=== PATIENT | male | born 1995 | race Hispanic/Latino ===

== ENCOUNTER 2018-10-24 15:57 | Emergency (ER) | payer SELFPAY ==
--- NOTE | 2018-10-24 17:29 | EDPHYS ---
Physician Documentation [facility] Name: Xavi Jarrell Age: 23 yrs Sex: Male : 1995 Arrival Date: 10/24/2018 Time: 16:01 Bed 9 Private MD: ED Physician Alden Hawkins HPI: 10/24 17:01 This 23 yrs old Male presents to ER via Ambulatory with complaints of Fever, jr8 Sore Throat, Cough. 17:01 Onset: The symptoms/episode began/occurred acutely, 2 day(s) ago. Modifying factors: jr8 there are no obvious modifying factors. Associated signs and symptoms: Pertinent positives: chills, cough, decreased appetite, headache, nausea, runny nose, sinus congestion, sore throat, vomiting. Severity of symptoms: At their worst the symptoms were mild in the emergency department the symptoms are unchanged. The patient has not experienced similar symptoms in the past. The patient has not recently seen a physician. Historical: - Allergies: 16:16 No Known Allergies; tw2 - PMHx: 16:16 None; tw2 - PSHx: 16:16 None; tw2 - Immunization history:: Adult Immunizations. - Social history:: Smoking status: Patient/guardian denies using tobacco. - Ebola Screening: : Patient denies travel to an Ebola-affected area in the 21 days before illness onset. ROS: 17:01 Eyes: Negative for injury, pain, redness, and discharge, Neck: Negative for injury, jr8 pain, and swelling, Cardiovascular: Negative for chest pain, palpitations, and edema, Back: Negative for injury and pain, MS/Extremity: Negative for injury and deformity, Skin: Negative for injury, rash, and discoloration. 17:01 Constitutional: Positive for body aches, chills, fever. 17:01 ENT: Positive for rhinorrhea, sinus congestion, sore throat. 17:01 Respiratory: Positive for cough, Negative for dyspnea on exertion, shortness of breath, sputum production, wheezing. 17:01 Abdomen/GI: Positive for nausea and vomiting, Negative for abdominal pain, diarrhea, abdominal cramps, abdominal distension, anorexia, dysphagia, hematemesis, black/tarry stool, rectal pain, rectal bleeding, bowel incontinence, flatulence. 17:01 Neuro: Positive for headache, Negative for altered mental status, dizziness, gait disturbance, hearing loss, loss of consciousness, numbness, seizure activity, speech changes, syncope, near syncope, tingling, tinnitus, tremor, visual changes, weakness. Exam: 17:01 Eyes: Pupils equal round and reactive to light, extra-ocular motions intact. Lids and jr8 lashes normal. Conjunctiva and sclera are non-icteric and not injected. Cornea within normal limits. Periorbital areas with no swelling, redness, or edema. ENT: Nares patent. No nasal discharge, no septal abnormalities noted. Tympanic membranes are normal and external auditory canals are clear. Oropharynx with no redness, swelling, or masses, exudates, or evidence of obstruction, uvula midline. Mucous membranes moist. Neck: Trachea midline, no thyromegaly or masses palpated, and no cervical lymphadenopathy. Supple, full range of motion without nuchal rigidity, or vertebral point tenderness. No Meningismus. Cardiovascular: Regular rate and rhythm with a normal S1 and S2. No gallops, murmurs, or rubs. Normal PMI, no JVD. No pulse deficits. Respiratory: Lungs have equal breath sounds bilaterally, clear to auscultation and percussion. No rales, rhonchi or wheezes noted. No increased work of breathing, no retractions or nasal flaring. Abdomen/GI: Soft, non-tender, with normal bowel sounds. No distension or tympany. No guarding or rebound. No evidence of tenderness throughout. Back: No spinal tenderness. No costovertebral tenderness. Full range of motion. Skin: Warm, dry with normal turgor. Normal color with no rashes, no lesions, and no evidence of cellulitis. MS/ Extremity: Pulses equal, no cyanosis. Neurovascular intact. Full, normal range of motion. Neuro: Awake and alert, GCS 15, oriented to person, place, time, and situation. Cranial nerves II-XII grossly intact. Motor strength 5/5 in all extremities. Sensory grossly intact. Cerebellar exam normal. Normal gait. Vital Signs: 16:16 BP 122 / 54; Pulse 88; Resp 17; Temp 98.0(TE); Pulse Ox 98% on R/A; Weight 106.59 kg tw2 (R); Height 6 ft. 3 in. (190.50 cm); Pain 8/10; 16:16 Body Mass Index 29.37 (106.59 kg, 190.50 cm) tw2 MDM: 16:39 Patient medically screened. jr8 17:28 Data reviewed: vital signs, nurses notes, lab test result(s), and as a result, I will jr8 discharge patient. Data interpreted: Pulse oximetry: on room air is 98 %. Interpretation: normal. Counseling: I had a detailed discussion with the patient and/or guardian regarding: the historical points, exam findings, and any diagnostic results supporting the discharge/admit diagnosis, lab results, the need for outpatient follow up, a family practitioner, to return to the emergency department if symptoms worsen or persist or if there are any questions or concerns that arise at home. 10/24 16:37 Order name: Flu; Complete Time: 17:25 ms 10/24 16:37 Order name: Strep; Complete Time: 17:25 ms 10/24 17:17 Order name: Throat Culture EDMS Administered Medications: No medications were administered Disposition: 10/25 07:59 Co-signature as Attending Physician, Alden Hawkins MD I agree with the assessment and kdr plan of care. Disposition: 10/24/18 17:29 Discharged to Home. Impression: Acute upper respiratory infection, unspecified. - Condition is Stable. - Discharge Instructions: Upper Respiratory Infection, Adult. - Prescriptions for Prednisone 20 mg Oral Tablet - take 1 tablet by ORAL route once daily for 5 days; 5 tablet. Zofran 4 mg Oral Tablet - take 1 tablet by ORAL route every 12 hours As needed; 20 tablet. Guaifenesin AC 10- 100 mg/5 mL Oral Liquid - take 10 milliliter by ORAL route every 4 hours As needed; 240 milliliter. - School release form, Work release form, Medication Reconciliation Form, Thank You Letter, Antibiotic Education, Prescription Opioid Use form. - Follow up: Private Physician; When: 5 - 6 days; Reason: Recheck today's complaints, Continuance of care, Re-evaluation by your physician. - Problem is new. - Symptoms have improved. Signatures: Dispatcher [employer] EDMS Alden Hawkins MD MD [facility] Renae Saravia RN RN iw Roszak, Josh, PA PA jr8 Lala Rooney RN RN tw2 Corrections: (The following items were deleted from the chart) 10/24 17:41 17:29 10/24/2018 17:29 Discharged to Home. Impression: Acute upper respiratory iw infection, unspecified. Condition is Stable. Forms are Medication Reconciliation Form, Thank You Letter, Antibiotic Education, Prescription Opioid Use. Follow up: Private Physician; When: 5 - 6 days; Reason: Recheck today's complaints, Continuance of care, Re-evaluation by your physician. Problem is new. Symptoms have improved. jr8
--- NOTE | 2018-10-24 17:29 | ER ---
Nurse's Notes [facility] Name: Xavi Jarrell Age: 23 yrs Sex: Male : 1995 Arrival Date: 10/24/2018 Time: 16:01 Bed 9 Private MD: Diagnosis: Acute upper respiratory infection, unspecified Presentation: 10/24 16:15 Presenting complaint: Patient states: my headache has been getting worse, i have tw2 cough/congestion, and i am feeling nauseous, yesterday i was getting chills and had fever. Transition of care: patient was not received from another setting of care. Onset of symptoms was October 24, 2018. Risk Assessment: Do you want to hurt yourself or someone else? Patient reports no desire to harm self or others. Initial Sepsis Screen: Does the patient meet any 2 criteria? No. Patient's initial sepsis screen is negative. Does the patient have a suspected source of infection? No. Patient's initial sepsis screen is negative. Care prior to arrival: None. 16:15 Method Of Arrival: Ambulatory tw2 16:15 Acuity: DEVAN 4 tw2 Triage Assessment: 16:16 General: Appears in no apparent distress. Behavior is calm, cooperative, appropriate tw2 for age. Pain: Complains of pain in headache and bodyaches. EENT: Reports nasal congestion nasal discharge. Historical: - Allergies: 16:16 No Known Allergies; tw2 - PMHx: 16:16 None; tw2 - PSHx: 16:16 None; tw2 - Immunization history:: Adult Immunizations. - Social history:: Smoking status: Patient/guardian denies using tobacco. - Ebola Screening: : Patient denies travel to an Ebola-affected area in the 21 days before illness onset. Screenin:40 Abuse screen: Denies threats or abuse. Denies injuries from another. Nutritional iw screening: No deficits noted. Tuberculosis screening: No symptoms or risk factors identified. Fall Risk None identified. Assessment: 17:00 General: Appears in no apparent distress. comfortable, Behavior is calm, cooperative. iw Pain: Complains of pain in head. Neuro: Level of Consciousness is awake, alert, obeys commands, Oriented to person, place, time, situation, Moves all extremities. Cardiovascular: Patient's skin is warm and dry. Respiratory: Reports cough that is Airway is patent Respiratory effort is even, unlabored, Breath sounds are clear bilaterally. GI: Abdomen is flat, non-distended. EENT: Throat is reddened. Derm: Skin is intact, is healthy with good turgor. Musculoskeletal: Range of motion: intact in all extremities. Vital Signs: 16:16 BP 122 / 54; Pulse 88; Resp 17; Temp 98.0(TE); Pulse Ox 98% on R/A; Weight 106.59 kg tw2 (R); Height 6 ft. 3 in. (190.50 cm); Pain 8/10; 16:16 Body Mass Index 29.37 (106.59 kg, 190.50 cm) tw2 ED Course: 16:01 Patient arrived in ED. ds1 16:15 Triage completed. tw2 16:16 Arm band placed on. tw2 16:16 Patient has correct armband on for positive identification. iw 16:37 Marc Manley PA is PHCP. jr8 16:37 Alden Hawkins MD is Attending Physician. jr8 17:02 Renae Saravia, RN is Primary Nurse. iw 17:04 Flu and/or RSV swab sent to lab. Strep swab sent to lab. ms 17:40 No provider procedures requiring assistance completed. Patient did not have IV access iw during this emergency room visit. Administered Medications: No medications were administered Outcome: 17:29 Discharge ordered by . jr8 17:40 Discharged to home ambulatory. iw 17:40 Condition: good 17:40 Discharge instructions given to patient, Instructed on discharge instructions, follow up and referral plans. Demonstrated understanding of instructions, follow-up care, medications, Prescriptions given X 2. 17:41 Patient left the ED. iw Signatures: Carlie Alvarez ds1 Renae Saravia, RN RN iw Esther Monge ms Marc Manley PA PA jr8 Lala Rooney RN RN tw2 Corrections: (The following items were deleted from the chart) 0307 07:27 03/06 17:40 Discharge instructions given to patient, Instructed on discharge iw instructions, follow up and referral plans. Demonstrated understanding of instructions, follow-up care, iw
== END 2018-10-24 17:41 | disposition home or self-care (01) ==
LOC: ER 15:57
DX: J06.9 Acute upper respiratory infection, unspecified (principal)
CPT/HCPCS: 87070; 87081; 87804; 99283

== ENCOUNTER 2019-07-10 11:37 | Emergency (ER) | payer SELFPAY ==
--- NOTE | 2019-07-10 12:36 | RAD REPORT ---
EXAM DESCRIPTION: Satya Umana (2 Views)07/10/2019 12:29 pm CLINICAL HISTORY: Cough COMPARISON: None FINDINGS: The lungs appear clear of acute infiltrate. The heart is normal size IMPRESSION: No acute abnormalities displayed
[2019-07-10] MEDS ORDERED: KETOROLAC 30 MG/ML INJ ONE (13:14)
--- NOTE | 2019-07-10 13:14 | ER ---
Nurse's Notes [facility] Name: Xavi Jarrell Age: 23 yrs Sex: Male : 1995 Arrival Date: 07/10/2019 Time: 11:39 Bed 11 Private MD: Diagnosis: Acute bronchitis Presentation: 07/10 11:39 Presenting complaint: Patient states: Cough, congestion, sore throat, and chest pain aj1 when he coughs since Monday. Denies fever. Transition of care: patient was not received from another setting of care. Onset of symptoms was June 2019. Risk Assessment: Do you want to hurt yourself or someone else? Patient reports no desire to harm self or others. Initial Sepsis Screen: Does the patient meet any 2 criteria? No. Patient's initial sepsis screen is negative. Does the patient have a suspected source of infection? No. Patient's initial sepsis screen is negative. Care prior to arrival: None. 11:39 Method Of Arrival: Ambulatory aj1 11:39 Acuity: DEVAN 4 aj1 Triage Assessment: 11:42 General: Appears in no apparent distress. comfortable, Behavior is calm, cooperative, aj1 appropriate for age. Pain: Complains of pain in chest Pain does not radiate. Pain currently is 8 out of 10 on a pain scale. Aggravated by when coughing or taking a deep breath. Neuro: Level of Consciousness is awake, alert, obeys commands. Cardiovascular: Patient's skin is warm and dry. Respiratory: Reports cough that is hacking, persistent Airway is patent Respiratory effort is even, unlabored, Respiratory pattern is regular, symmetrical, Breath sounds are clear bilaterally. Historical: - Allergies: 11:42 No Known Allergies; aj1 - Home Meds: 11:42 None [Active]; aj1 - PMHx: 11:42 None; aj1 - PSHx: 11:42 None; aj1 - Immunization history:: Flu vaccine is not up to date. - Social history:: Smoking status: Patient/guardian denies using tobacco, Patient/guardian denies using alcohol, street drugs, The patient lives with family. - Ebola Screening: : Patient denies travel to an Ebola-affected area in the 21 days before illness onset. - Family history:: not pertinent. Screenin:26 Abuse screen: Denies threats or abuse. Denies injuries from another. Nutritional ss screening: No deficits noted. Tuberculosis screening: Never had TB. Fall Risk None identified. Assessment: 12:24 General: Appears in no apparent distress. comfortable, Behavior is calm, cooperative, ss Reports feeling ill for 2-3 days, Denies fever. Pain: Complains of pain in chest Pain currently is 8 out of 10 on a pain scale. Quality of pain is described as sore Is continuous, Aggravated by coughing. Neuro: Level of Consciousness is awake, alert, obeys commands, Oriented to person, place, time, situation. Cardiovascular: Capillary refill < 3 seconds is brisk in bilateral fingers. Respiratory: Airway is patent Respiratory effort is even, unlabored, Respiratory pattern is regular, symmetrical. Respiratory: Reports cough that is persistent Breath sounds are clear bilaterally. GI: Patient currently denies diarrhea, nausea, vomiting. EENT: Nares are clear Reports sore throat. Derm: Skin is intact, is healthy with good turgor, Skin is dry, Skin is pink, warm \T\ dry. normal. Musculoskeletal: Circulation, motion, and sensation intact. Capillary refill < 3 seconds, is brisk, in bilateral fingers. Range of motion: intact in all extremities, Swelling absent. 13:25 Reassessment: DC DELAYED DUE TO SHOT TIME. ss Vital Signs: 11:42 BP 141 / 80; Pulse 68; Resp 16; Temp 97.7; Pulse Ox 98% on R/A; Weight 102.06 kg (R); aj1 Height 6 ft. 3 in. (190.50 cm) (R); Pain 8/10; 11:42 Body Mass Index 28.12 (102.06 kg, 190.50 cm) aj1 ED Course: 11:39 Patient arrived in ED. as 11:41 Triage completed. aj1 11:42 Arm band placed on Patient placed in waiting room, Patient notified of wait time. aj1 12:16 Rachel Perez MD is Attending Physician. ma2 12:19 Raisa Lancaster, MARKO is Primary Nurse. ss 12:29 Chest Pa And Lat (2 Views) XRAY In Process Unspecified. EDMS 13:25 No provider procedures requiring assistance completed. Patient did not have IV access ss during this emergency room visit. 13:26 Patient has correct armband on for positive identification. Bed in low position. ss Administered Medications: 13:14 Drug: TORadol 60 mg Route: IM; Site: left gluteus; ss 13:26 Follow up: Response: No adverse reaction ss Outcome: 13:14 Discharge ordered by . ma2 13:25 Condition: good ss 13:25 Discharge instructions given to patient, Instructed on discharge instructions, follow up and referral plans. medication usage, Demonstrated understanding of instructions, follow-up care, medications, Prescriptions given X 3. 13:26 Discharged to home ambulatory. ss 13:26 Patient left the ED. ss Signatures: Dispatcher [employer] EDMS Sun Cartagena RN RN aj1 Melissa Anders Shelby, RN RN Rachel Perez MD MD ma2
--- NOTE | 2019-07-10 13:14 | EDPHYS ---
Physician Documentation [facility] Name: Xavi Jarrell Age: 23 yrs Sex: Male : 1995 Arrival Date: 07/10/2019 Time: 11:39 Bed 11 Private MD: ED Physician Rachel Perez HPI: 07/10 13:12 This 23 yrs old Male presents to ER via Ambulatory with complaints of Painful ma2 Cough, Congestion. 13:12 Onset: The symptoms/episode began/occurred gradually, 1 day(s) ago. Severity of ma2 symptoms: At their worst the symptoms were moderate, in the emergency department the symptoms are unchanged. Associated signs and symptoms: Pertinent negatives: diarrhea, nausea, sore throat. The patient has not experienced similar symptoms in the past. Historical: - Allergies: 11:42 No Known Allergies; aj1 - Home Meds: 11:42 None [Active]; aj1 - PMHx: 11:42 None; aj1 - PSHx: 11:42 None; aj1 - Immunization history:: Flu vaccine is not up to date. - Social history:: Smoking status: Patient/guardian denies using tobacco, Patient/guardian denies using alcohol, street drugs, The patient lives with family. - Ebola Screening: : Patient denies travel to an Ebola-affected area in the 21 days before illness onset. - Family history:: not pertinent. ROS: 13:12 Constitutional: Negative for fever, chills, and weight loss. ma2 13:12 All other systems are negative. Exam: 13:12 Constitutional: This is a well developed, well nourished patient who is awake, alert, ma2 and in no acute distress. Eyes: Pupils equal round and reactive to light, extra-ocular motions intact. Lids and lashes normal. Conjunctiva and sclera are non-icteric and not injected. Cornea within normal limits. Periorbital areas with no swelling, redness, or edema. ENT: Nares patent. No nasal discharge, no septal abnormalities noted. Tympanic membranes are normal and external auditory canals are clear. Oropharynx with redness + tonsillitis, no, swelling, or masses, exudates, or evidence of obstruction, uvula midline. Mucous membranes moist. Chest/axilla: Normal chest wall appearance and motion. Nontender with no deformity. No lesions are appreciated. Cardiovascular: Regular rate and rhythm with a normal S1 and S2. No gallops, murmurs, or rubs. Normal PMI, no JVD. No pulse deficits. Respiratory: Lungs have equal breath sounds bilaterally, clear to auscultation and percussion. No rales, rhonchi or wheezes noted. No increased work of breathing, no retractions or nasal flaring. Abdomen/GI: Soft, non-tender, with normal bowel sounds. No distension or tympany. No guarding or rebound. No evidence of tenderness throughout. Vital Signs: 11:42 BP 141 / 80; Pulse 68; Resp 16; Temp 97.7; Pulse Ox 98% on R/A; Weight 102.06 kg (R); aj1 Height 6 ft. 3 in. (190.50 cm) (R); Pain 8/10; 11:42 Body Mass Index 28.12 (102.06 kg, 190.50 cm) [facility] MDM: 12:16 Patient medically screened. pa2 13:12 Differential Diagnosis: Bronchitis Influenza Upper Respiratory Infection Sinusitis. ma2 Data reviewed: vital signs, nurses notes. Counseling: I had a detailed discussion with the patient and/or guardian regarding: the historical points, exam findings, and any diagnostic results supporting the discharge/admit diagnosis, the presence of at least one elevated blood pressure reading (>120/80) during this emergency department visit, the need for outpatient follow up. Response to treatment: the patient's symptoms have resolved after treatment. 07/10 11:43 Order name: Flu; Complete Time: 12:22 [facility] 07/10 11:43 Order name: Strep; Complete Time: 12:22 [facility] 07/10 11:43 Order name: Chest Pa And Lat (2 Views) XRAY; Complete Time: 13:12 [facility] 07/10 12:06 Order name: Throat Culture EDMS Administered Medications: 13:14 Drug: TORadol 60 mg Route: IM; Site: left gluteus; ss 13:26 Follow up: Response: No adverse reaction ss Disposition: 07/10/19 13:14 Discharged to Home. Impression: Acute bronchitis. - Condition is Stable. - Discharge Instructions: Acute Bronchitis, Adult, Form - Excuse from Work, School, or Physical Activity. - Prescriptions for Tylenol- Codeine #3 300-30 mg Oral Tablet - take 2 tablet by ORAL route every 6 hours As needed; 30 tablet. Tessalon Perles 100 mg Oral Capsule - take 1 capsule by ORAL route every 8 hours As needed; 15 capsule. Zithromax Z- José Miguel 250 mg Oral Tablet - take 1 tablet by ORAL route as directed for 5 days Day 1 - take two (2) tablets one time. Day 2, 3, 4 , 5 take one (1) tablet once daily.; 6 tablet. - Work release form, Medication Reconciliation Form, Thank You Letter, Antibiotic Education, Prescription Opioid Use form. - Follow up: Private Physician; When: Tomorrow; Reason: Recheck today's complaints, Continuance of care. Signatures: Dispatcher [employer] Sun Uriarte RN RN aj1 Raisa Lancaster RN RN ss Rachel Perez MD MD ma2 Corrections: (The following items were deleted from the chart) 13:26 13:14 07/10/2019 13:14 Discharged to Home. Impression: Acute bronchitis. Condition is ss Stable. Forms are Medication Reconciliation Form, Thank You Letter, Antibiotic Education, Prescription Opioid Use. Follow up: Private Physician; When: Tomorrow; Reason: Recheck today's complaints, Continuance of care. ma2
[2019-07-10 13:38] VITALS: BP 141/80; TEMP 97.7; O2SAT 98
== END 2019-07-10 13:26 | disposition home or self-care (01) ==
LOC: ER 11:37
DX: J20.9 Acute bronchitis, unspecified (principal)
CPT/HCPCS: 71046; 87070; 87081; 87804; 96372; 99283

== ENCOUNTER 2019-10-31 09:13 | Emergency (ER) | payer SELFPAY ==
[2019-10-31 10:50] LABS: Absolute Lymphocytes (CBC) 2.3 K/uL (0.7-4.9); Basophils % 0.5 % (0-1.3); Lymphocytes % 24.3 % (15.3-44.8); MPV 8.6 fL (7.6-11.3); RBC Red Blood Cell Count 4.89 M/uL (4.33-5.43)
[2019-10-31] MEDS ORDERED: NA CHLORIDE 0.9% 1,000 ML ONE (10:50)
[2019-10-31] MEDS ORDERED: DICYCLOMINE HCL 10 MG CAP ONE (10:50)
[2019-10-31 11:04] LABS: BUN Blood Urea Nitrogen 12 mg/dL (7-18); Bicarbonate 25 mmol/L (21-32); Glucose Level 174 mg/dL (74-106); Potassium 3.9 mmol/L (3.5-5.1); Sodium Level 139 mmol/L (136-145)
--- NOTE | 2019-10-31 11:45 | EDPHYS ---
Physician Documentation [facility] Name: Xavi Jarrell Age: 24 yrs Sex: Male : 1995 Arrival Date: 10/31/2019 Time: 09:15 Bed 13 Private MD: ED Physician Alden Hawkins HPI: 10/30 10:33 This 24 yrs old Male presents to ER via Ambulatory with complaints of la1 Abdominal Pain. 10:33 The patient presents with abdominal pain in the epigastric area. Onset: The la1 symptoms/episode began/occurred 4 day(s) ago. The symptoms do not radiate. Associated signs and symptoms: none. The symptoms are described as crampy. Modifying factors: The symptoms are alleviated by nothing, the symptoms are aggravated by nothing. Severity of pain: At its worst the pain was mild. The patient has not experienced similar symptoms in the past. pt reports frequent diarrhea for the last few days. Historical: - Allergies: 10:01 No Known Allergies; jl7 - Home Meds: 10:01 None [Active]; jl7 - PMHx: 10:01 None; jl7 - PSHx: 10:01 None; jl7 - Immunization history:: Adult Immunizations not up to date. - Social history:: Smoking status: Patient denies any tobacco usage or history of. ROS: 10:34 Constitutional: Negative for fever, chills, and weight loss, Eyes: Negative for injury, la1 pain, redness, and discharge, ENT: Negative for injury, pain, and discharge, Neck: Negative for injury, pain, and swelling, Cardiovascular: Negative for chest pain, palpitations, and edema, Respiratory: Negative for shortness of breath, cough, wheezing, and pleuritic chest pain. 10:34 Back: Negative for injury and pain, : Negative for injury, bleeding, discharge, and swelling, MS/Extremity: Negative for injury and deformity, Neuro: Negative for headache, weakness, numbness, tingling, and seizure. 10:34 Abdomen/GI: Positive for abdominal pain, diarrhea, abdominal cramps. Exam: 10:34 Constitutional: This is a well developed, well nourished patient who is awake, alert, la1 and in no acute distress. Head/Face: Normocephalic, atraumatic. ENT: Mucous membranes moist. Chest/axilla: Normal chest wall appearance and motion. Nontender with no deformity. No lesions are appreciated. Cardiovascular: Regular rate and rhythm with a normal S1 and S2. No gallops, murmurs, or rubs. Normal PMI, no JVD. No pulse deficits. Respiratory: Lungs have equal breath sounds bilaterally, clear to auscultation 10:34 Skin: Warm, dry with normal turgor. Normal color with no rashes, no lesions, and no evidence of cellulitis. 10:34 Abdomen/GI: Inspection: abdomen appears normal, Bowel sounds: normal, Palpation: soft, in all quadrants, nontender, in all quadrants, Indicators: McBurney's point is not tender, Nieves's sign is negative, Rovsing's sign is negative, Obturator sign is negative, Psoas sign is negative. Vital Signs: 10:00 BP 129 / 69; Pulse 66; Resp 17; Temp 98.0(O); Pulse Ox 97% on R/A; Weight 104.33 kg jl7 (R); Height 6 ft. 3 in. (190.50 cm) (R); Pain 8/10; 12:00 BP 121 / 78; Pulse 70; Resp 18; Temp 98; Pulse Ox 100% on R/A; mg2 10:00 Body Mass Index 28.75 (104.33 kg, 190.50 cm) jl7 MDM: 10:28 Patient medically screened. la1 11:43 Data reviewed: vital signs, nurses notes, lab test result(s), and as a result, I will la1 discharge patient. Data interpreted: Pulse oximetry: on room air is 98 %. Counseling: I had a detailed discussion with the patient and/or guardian regarding: the historical points, exam findings, and any diagnostic results supporting the discharge/admit diagnosis, lab results, the need for outpatient follow up, to return to the emergency department if symptoms worsen or persist or if there are any questions or concerns that arise at home. Medication response: lynsey. Response to treatment: the patient's symptoms have mildly improved after treatment, patient is well hydrated. and as a result, I will discharge patient. Special discussion: Based on the patient's Hx, exam, and Dx evaluation, there is no indication for emergent surgery or inpatient Tx. It is understood by the patient/guardian that if the Sx's persist or worsen they need to return immediately for re-evaluation. 10/30 10:33 Order name: CBC with Diff; Complete Time: 11:10/30 10:33 Order name: BMP; Complete Time: 11:10/30 10:33 Order name: IV; Complete Time: 10:50 la1 Administered Medications: 10:49 Drug: NS 0.9% 1000 ml Route: IV; Rate: 1000 ml; Site: right antecubital; mg2 11:48 Drug: Bentyl 20 mg Route: PO; mg2 Disposition: 17:18 Co-signature as Attending Physician, Alden Hawkins MD I agree with the assessment and kdr plan of care. Disposition: 10/31/19 11:44 Discharged to Home. Impression: Other abdominal pain, Diarrhea, unspecified. - Condition is Stable. - Discharge Instructions: Abdominal Pain, Adult, Food Choices to Help Relieve Diarrhea, Adult, Diarrhea, Adult. - Prescriptions for Bentyl 20 mg Oral Tablet - take 1 tablet by ORAL route every 6 hours As needed; 20 tablet. Zofran 4 mg Oral Tablet - take 1 tablet by ORAL route every 12 hours As needed; 6 tablet. - Medication Reconciliation Form, Thank You Letter, Work release form form. - Follow up: Private Physician; When: 2 - 3 days; Reason: Recheck today's complaints, Re-evaluation by your physician. Follow up: Emergency Department; When: As needed; Reason: Worsening of condition. - Problem is new. - Symptoms have improved. Signatures: Dispatcher [employer] EDAK Alden Hawkins MD MD [facility] Tristian Dodd, FELISA-C INDUSTRIAL TRUCK DRIVER-Cla1 Britney Daigle RN RN jl7 Jeovanny Stallings RN RN mg2 Corrections: (The following items were deleted from the chart) 12:01 11:44 10/31/2019 11:44 Discharged to Home. Impression: Other abdominal pain; Diarrhea, mg2 unspecified. Condition is Stable. Forms are Medication Reconciliation Form, Thank You Letter, Antibiotic Education, Prescription Opioid Use. Follow up: Private Physician; When: 2 - 3 days; Reason: Recheck today's complaints, Re-evaluation by your physician. Follow up: Emergency Department; When: As needed; Reason: Worsening of condition. Problem is new. Symptoms have improved. la1
--- NOTE | 2019-10-31 11:45 | ER ---
Nurse's Notes [facility] Name: Xavi Jarrell Age: 24 yrs Sex: Male : 1995 Arrival Date: 10/31/2019 Time: 09:15 Bed 13 Private MD: Diagnosis: Other abdominal pain;Diarrhea, unspecified Presentation: 10/30 10:00 Chief complaint: Patient states: Diarrhea and lower abdominal cramping x 3 days, denies jl7 N/V and fever. Coronavirus screen: The patient has NOT traveled to a country currently being monitored by the [facility] within the last 14 days. Proceed with normal triage procedures. Ebola Screen: No symptoms or risks identified at this time. Initial Sepsis Screen: Does the patient meet any 2 criteria? No. Patient's initial sepsis screen is negative. Does the patient have a suspected source of infection? No. Patient's initial sepsis screen is negative. Risk Assessment: Do you want to hurt yourself or someone else? Patient reports no desire to harm self or others. Onset of symptoms was October 29, 2019. 10:00 Method Of Arrival: Ambulatory jl7 10:00 Acuity: DEVAN 3 jl7 Triage Assessment: 10:01 General: Appears in no apparent distress. uncomfortable, Behavior is calm, cooperative, jl7 appropriate for age. Pain: Complains of pain in right lower quadrant and left lower quadrant Pain currently is 8 out of 10 on a pain scale. Quality of pain is described as crampy. Neuro: Level of Consciousness is awake, alert, obeys commands, Oriented to person, place, time, situation. Cardiovascular: Patient's skin is warm and dry. Respiratory: Airway is patent Respiratory effort is even, unlabored, Respiratory pattern is regular, symmetrical. GI: Abdomen is non-distended, Reports diarrhea, tolerance of fluids, tolerance of food, Patient currently denies nausea, vomiting. Derm: Skin is pink, warm \T\ dry. Historical: - Allergies: 10: No Known Allergies; jl7 - Home Meds: 10:01 None [Active]; jl7 - PMHx: 10:01 None; jl7 - PSHx: 10:01 None; jl7 - Immunization history:: Adult Immunizations not up to date. - Social history:: Smoking status: Patient denies any tobacco usage or history of. Screenin:51 Abuse screen: Denies threats or abuse. Denies injuries from another. Nutritional mg2 screening: No deficits noted. Tuberculosis screening: No symptoms or risk factors identified. Fall Risk IV access (20 points). Assessment: 10:50 General: Appears in no apparent distress. comfortable, Behavior is calm, cooperative. mg2 Pain: Denies pain. Neuro: Level of Consciousness is awake, alert, obeys commands, Oriented to person, place, time, situation. Cardiovascular: Capillary refill < 3 seconds Patient's skin is warm and dry. Respiratory: Airway is patent Respiratory effort is even, unlabored, Respiratory pattern is regular, symmetrical. GI: Bowel sounds present X 4 quads. Abd is soft and non tender Reports diarrhea. : No signs and/or symptoms were reported regarding the genitourinary system. EENT: No signs and/or symptoms were reported regarding the EENT system. Derm: Skin is intact, is healthy with good turgor, Skin is pink, warm \T\ dry. normal. Musculoskeletal: Circulation, motion, and sensation intact. Capillary refill < 3 seconds. 11:30 Reassessment: Patient appears in no apparent distress at this time. Patient and/or mg2 family updated on plan of care and expected duration. Pain level reassessed. Patient is alert, oriented x 3, equal unlabored respirations, skin warm/dry/pink. Vital Signs: 10:00 BP 129 / 69; Pulse 66; Resp 17; Temp 98.0(O); Pulse Ox 97% on R/A; Weight 104.33 kg jl7 (R); Height 6 ft. 3 in. (190.50 cm) (R); Pain 8/10; 12:00 BP 121 / 78; Pulse 70; Resp 18; Temp 98; Pulse Ox 100% on R/A; mg2 10:00 Body Mass Index 28.75 (104.33 kg, 190.50 cm) jl7 ED Course: 09:15 Patient arrived in ED. ag5 10:01 Triage completed. jl7 10:01 Arm band placed on right wrist. jl7 10:03 Patient placed in waiting room, Patient notified of wait time. jl7 10:07 Tristian Dodd [facility]-C [facility] la1 10:07 Alden Hawkins MD is Attending Physician. la1 10:39 Gardose, Jeovanny, RN is Primary Nurse. mg2 10:50 No provider procedures requiring assistance completed. Inserted saline lock: 20 gauge mg2 in right antecubital area, using aseptic technique. Blood collected. 10:52 Patient has correct armband on for positive identification. mg2 12:00 IV discontinued, intact, bleeding controlled, No redness/swelling at site. Pressure mg2 dressing applied. Administered Medications: 10:49 Drug: NS 0.9% 1000 ml Route: IV; Rate: 1000 ml; Site: right antecubital; mg2 11:48 Drug: Bentyl 20 mg Route: PO; mg2 Outcome: 11:44 Discharge ordered by MD. laRebekah 12:00 Discharged to home ambulatory. mg2 12:00 Condition: stable 12:00 Discharge instructions given to patient, Instructed on discharge instructions, follow up and referral plans. medication usage, Demonstrated understanding of instructions, follow-up care, medications, Prescriptions given X 2. 12:01 Patient left the ED. mg2 Signatures: Tristian Dodd, SENIOR PROJECT ENGINEER-C SENIOR PROJECT ENGINEER-Cla1 Britney Daigle RN RN jl7 Jeovanny Stallings, MARKO RN mg2 Quinn Warren ag5
[2019-10-31 12:37] VITALS: BP 121/78; TEMP 98; O2SAT 100
== END 2019-10-31 12:01 | disposition home or self-care (01) ==
LOC: ER 09:13
DX: R19.7 Diarrhea, unspecified (principal)
CPT/HCPCS: 36415; 80048; 85025; 99284; J7030

== ENCOUNTER 2019-11-04 14:57 | Emergency (ER) | payer SELFPAY ==
--- NOTE | 2019-11-04 16:33 | RAD REPORT ---
EXAM DESCRIPTION: RAD - Chest Pa And Lat (2 Views) - 11/04/2019 4:08 pm CLINICAL HISTORY: Cough;SOB COMPARISON: June 2019 TECHNIQUE: Frontal and lateral views of the chest were obtained. FINDINGS: The lungs are clear. Interstitial pattern matches comparison. Heart size is normal and ce ntral vasculature is within normal limits. No pleural effusion or pneumothorax seen. No acute bony finding noted. No aortic abnormality. IMPRESSION: No acute cardiopulmonary process.
--- NOTE | 2019-11-04 17:03 | ER ---
Nurse's Notes [facility] Name: Xavi Jarrell Age: 24 yrs Sex: Male : 1995 Arrival Date: 11/04/2019 Time: 15:03 Bed 23 Private MD: Diagnosis: Acute upper respiratory infection, unspecified Presentation: 11/03 15:17 Chief complaint: Patient states: sore throat since yesterday , painful to talk , no iw fever. Coronavirus screen: The patient has NOT traveled to a country currently being monitored by the [facility] within the last 14 days. Proceed with normal triage procedures. Coronavirus screen: The patient has NOT traveled to a country currently being monitored by the [facility] within the last 14 days. Proceed with normal triage procedures. The patient has NOT had contact with any known and/or suspected case of coronavirus. Proceed with normal triage procedures. Ebola Screen: Patient negative for fever greater than or equal to 101.5 degrees Fahrenheit, and additional compatible Ebola Virus Disease symptoms Patient denies exposure to infectious person. Patient denies travel to an Ebola-affected area in the 21 days before illness onset. No symptoms or risks identified at this time. Initial Sepsis Screen: Does the patient meet any 2 criteria? No. Patient's initial sepsis screen is negative. Does the patient have a suspected source of infection? No. Patient's initial sepsis screen is negative. Risk Assessment: Do you want to hurt yourself or someone else? Patient reports no desire to harm self or others. 15:17 Method Of Arrival: Ambulatory iw 15:17 Acuity: DEVAN 4 iw 16:07 Onset of symptoms was November 03, 2019. dw Triage Assessment: 16:06 General: Appears in no apparent distress. Behavior is calm, cooperative. dw 16:08 Pain: Complains of pain in uvula, left aspect of posterior pharynx and right aspect of dw posterior pharynx Pain currently is 10 out of 10 on a pain scale. Historical: - Allergies: 15:18 No Known Allergies; iw - Home Meds: 15:18 None [Active]; iw - PMHx: 15:18 None; iw - PSHx: 15:18 None; iw - Immunization history:: Adult Immunizations not up to date. - Social history:: Smoking status: Patient denies any tobacco usage or history of. Screenin:06 Abuse screen: Denies threats or abuse. Nutritional screening: No deficits noted. dw Tuberculosis screening: No symptoms or risk factors identified. Fall Risk None identified. Vital Signs: 15:17 BP 138 / 81; Pulse 82; Resp 16; Temp 97.7; Pulse Ox 96% on R/A; Weight 104.33 kg; iw Height 6 ft. 3 in. (190.50 cm); Pain 10/10; 15:17 Body Mass Index 28.75 (104.33 kg, 190.50 cm) ED Course: 15:03 Patient arrived in ED. ag5 15:18 Triage completed. iw 15:18 Arm band placed on. iw 15:25 Ander Hernández NP is PHCP. pm1 15:25 Mehran Caballero MD is Attending Physician. pm1 15:27 Kavitha Daugherty, RN is Primary Nurse. dw 16:06 Chest Pa And Lat (2 Views) XRAY In Process Unspecified. EDMS 16:06 Patient has correct armband on for positive identification. Bed in low position. Call dw light in reach. 16:16 Strep Sent. dw 16:16 Flu Sent. dw Administered Medications: No medications were administered Outcome: 17:03 Discharge ordered by . pm1 17:13 Patient left the ED. Signatures: Dispatcher [employer] Kavitha Desir RN RN Renae Do RN RN Ander Hernández NP REHAB MANAGER pm1 Quinn Warren ag5
--- NOTE | 2019-11-04 17:04 | EDPHYS ---
Physician Documentation [facility] Name: Xavi Jarrell Age: 24 yrs Sex: Male : 1995 Arrival Date: 11/04/2019 Time: 15:03 Bed 23 Private MD: ED Physician Mehran Caballero HPI: 11/03 15:30 This 24 yrs old Male presents to ER via Ambulatory with complaints of Sore pm1 throat. 15:30 Onset: The symptoms/episode began/occurred yesterday. Associated signs and symptoms: pm1 Pertinent positives: cough, shortness of breath, Pertinent negatives: abdominal pain, diarrhea, earache, fever, vomiting. Modifying factors: The patient symptoms are alleviated by nothing, the patient symptoms are aggravated by swallowing. The patient has not recently seen a physician. Denies any sick contacts. Historical: - Allergies: 15:18 No Known Allergies; iw - Home Meds: 15:18 None [Active]; iw - PMHx: 15:18 None; iw - PSHx: 15:18 None; iw - Immunization history:: Adult Immunizations not up to date. - Social history:: Smoking status: Patient denies any tobacco usage or history of. ROS: 15:30 Constitutional: Negative for fever, chills, and weight loss. pm1 15:30 Neck: Negative for injury, pain, and swelling, Cardiovascular: Negative for chest pain, palpitations, and edema, Respiratory: Negative for shortness of breath, cough, wheezing, and pleuritic chest pain, Abdomen/GI: Negative for abdominal pain, nausea, vomiting, diarrhea, and constipation, Back: Negative for injury and pain, MS/Extremity: Negative for injury and deformity, Skin: Negative for injury, rash, and discoloration, Neuro: Negative for headache, weakness, numbness, tingling, and seizure. 15:30 ENT: Positive for sore throat, Negative for ear pain, rhinorrhea, difficulty swallowing, difficulty handling secretions, hoarseness. Exam: 15:30 Constitutional: This is a well developed, well nourished patient who is awake, alert, pm1 and in no acute distress. Head/Face: Normocephalic, atraumatic. 15:30 Neck: Trachea midline, no thyromegaly or masses palpated, and no cervical lymphadenopathy. Supple, full range of motion without nuchal rigidity, or vertebral point tenderness. No Meningismus. Chest/axilla: Normal chest wall appearance and motion. Nontender with no deformity. No lesions are appreciated. Cardiovascular: Regular rate and rhythm with a normal S1 and S2. No gallops, murmurs, or rubs. Normal PMI, no JVD. No pulse deficits. Respiratory: Lungs have equal breath sounds bilaterally, clear to auscultation and percussion. No rales, rhonchi or wheezes noted. No increased work of breathing, no retractions or nasal flaring. Abdomen/GI: Soft, non-tender, with normal bowel sounds. No distension or tympany. No guarding or rebound. No evidence of tenderness throughout. Back: No spinal tenderness. No costovertebral tenderness. Full range of motion. Skin: Warm, dry with normal turgor. Normal color with no rashes, no lesions, and no evidence of cellulitis. MS/ Extremity: Pulses equal, no cyanosis. Neurovascular intact. Full, normal range of motion. 15:30 ENT: External ear(s): are unremarkable, Ear canal(s): are normal, TM's: are normal, Nose: is normal, Posterior pharynx: Tonsils: bilaterally enlarged, with erythema, no exudate, no ulcerations, erythema, that is mild, peritonsillar mass, is not appreciated, pooling of secretions, is not appreciated. 15:30 Neuro: Orientation: is normal, Motor: is normal, moves all fours. Vital Signs: 15:17 BP 138 / 81; Pulse 82; Resp 16; Temp 97.7; Pulse Ox 96% on R/A; Weight 104.33 kg; iw Height 6 ft. 3 in. (190.50 cm); Pain 10/10; 15:17 Body Mass Index 28.75 (104.33 kg, 190.50 cm) iw MDM: 15:30 Patient medically screened. pm1 17:01 Data reviewed: vital signs. Data interpreted: Pulse oximetry: on room air is 96 %. pm1 Interpretation: normal. 17:02 Counseling: I had a detailed discussion with the patient and/or guardian regarding: the pm1 historical points, exam findings, and any diagnostic results supporting the discharge/admit diagnosis, lab results, the need for outpatient follow up, to return to the emergency department if symptoms worsen or persist or if there are any questions or concerns that arise at home. 11/03 15:25 Order name: Flu; Complete Time: 16:50 pm1 11/03 15:25 Order name: Strep; Complete Time: 16:50 pm1 11/03 15:38 Order name: Chest Pa And Lat (2 Views) XRAY; Complete Time: 16:44 pm1 11/03 16:50 Order name: Throat Culture EDMS Administered Medications: No medications were administered Disposition: 17:27 Co-signature as Attending Physician, Mehran Caballero MD. rn Disposition: 11/04/19 17:03 Discharged to Home. Impression: Acute upper respiratory infection, unspecified. - Condition is Stable. - Discharge Instructions: Antibiotic Resistance, Upper Respiratory Infection, Adult, Viral Respiratory Infection. - Prescriptions for Tessalon Perles 100 mg Oral Capsule - take 1 capsule by ORAL route every 8 hours As needed; 15 capsule. - Work release form, Medication Reconciliation Form, Thank You Letter, Antibiotic Education, Prescription Opioid Use form. - Follow up: Emergency Department; When: As needed; Reason: Worsening of condition. Follow up: Private Physician; When: 2 - 3 days; Reason: Recheck today's complaints, Continuance of care, Re-evaluation by your physician. - Problem is new. - Symptoms have improved. Signatures: Dispatcher [employer] EDKavitha Pretty RN RN dw Williams, Irene, RN RN iw Nieto, Roman, MD MD rn Marinas, Patrick, MOWER SHARPENER MOWER SHARPENER pm1 Corrections: (The following items were deleted from the chart) 17:13 17:03 11/04/2019 17:03 Discharged to Home. Impression: Acute upper respiratory dw infection, unspecified. Condition is Stable. Forms are Medication Reconciliation Form, Thank You Letter, Antibiotic Education, Prescription Opioid Use. Follow up: Emergency Department; When: As needed; Reason: Worsening of condition. Follow up: Private Physician; When: 2 - 3 days; Reason: Recheck today's complaints, Continuance of care, Re-evaluation by your physician. Problem is new. Symptoms have improved. pm1
[2019-11-04 17:50] VITALS: BP 138/81; TEMP 97.7; O2SAT 96
== END 2019-11-04 17:13 | disposition home or self-care (01) ==
LOC: ER 14:57
DX: J06.9 Acute upper respiratory infection, unspecified (principal); R05 Cough
CPT/HCPCS: 71046; 87070; 87081; 87804; 99283

== ENCOUNTER 2020-03-25 03:14 | Emergency (ER) | payer SELFPAY ==
[2020-03-25] MEDS ORDERED: SMZ./TMP. 800/160 MG TABLET ONE (04:36)
--- NOTE | 2020-03-25 05:02 | ER ---
Nurse's Notes [facility] Name: Xavi Jarrell Age: 24 yrs Sex: Male : 1995 Arrival Date: 03/25/2020 Time: 03:18 Bed 18 Private MD: Diagnosis: Impacted cerumen, left ear;Omphalitis not of ;Headache Presentation: 03/25 03:24 Chief complaint: Patient states: PER PT CLAY THT STARTED 2 DAYS AGO NOW RADIATING DOWN TO mt2 LEFT EAR CAUSING PRESSURE. DENIES DIZZINESS, M/V, OR BLURRED VISION. DENIES FEVER OR RUNNY NOSE. INCIDENTALLY NOTICED BLEEDING AROUND NAVAL AREA. NONE NOTED IN TRIAGE. Coronavirus screen: Client denies travel out of the [place] in the last 14 days. At this time, the client does not indicate any symptoms associated with coronavirus-19. Ebola Screen: No symptoms or risks identified at this time. Initial Sepsis Screen: Does the patient meet any 2 criteria? No. Patient's initial sepsis screen is negative. Does the patient have a suspected source of infection? No. Patient's initial sepsis screen is negative. Risk Assessment: Do you want to hurt yourself or someone else? Patient reports no desire to harm self or others. Onset of symptoms was March 23, 2020. 03:24 Method Of Arrival: Ambulatory mt2 03:24 Acuity: DEVAN 4 mt2 Triage Assessment: 03:27 Headache History: Denies prior headaches. General: Appears uncomfortable, Behavior is mt2 cooperative. Pain: Complains of pain in face and left ear Pain currently is 9 out of 10 on a pain scale. Pain began 2-3 days ago. Also complains of no other associated symptoms. EENT: Reports pain in left ear. Neuro: Reports headache. Cardiovascular: No deficits noted. Respiratory: No deficits noted. GI: No deficits noted. : No deficits noted. Derm: No deficits noted. Musculoskeletal: No deficits noted. Historical: - Allergies: 03:27 No Known Allergies; mt2 - PMHx: 03:27 None; mt2 - Immunization history:: Adult Immunizations up to date. - Social history:: Smoking status: Patient denies any tobacco usage or history of. Patient/guardian denies using alcohol, street drugs. - Family history:: not pertinent. - Hospitalizations: : No recent hospitalization is reported. Screenin:28 Abuse screen: Denies threats or abuse. Nutritional screening: No deficits noted. mt2 Tuberculosis screening: No symptoms or risk factors identified. Fall Risk None identified. Assessment: 04:23 Reassessment: Patient and/or family updated on plan of care and expected duration. Pain mt2 level reassessed. Patient is alert, oriented x 3, equal unlabored respirations, skin warm/dry/pink. Patient states symptoms have improved. General: Appears comfortable, Behavior is cooperative. Pain: Complains of pain in face Pain currently is 4 out of 10 on a pain scale. Quality of pain is described as aching. 05:06 Reassessment: Patient and/or family updated on plan of care and expected duration. Pain mt2 level reassessed. Patient is alert, oriented x 3, equal unlabored respirations, skin warm/dry/pink. Patient denies pain at this time. Patient states symptoms have improved. Vital Signs: 03:24 BP 136 / 86; Pulse 63; Resp 16; Temp 98.1; Pulse Ox 98% on R/A; Weight 117.93 kg; mt2 Height 6 ft. 2 in. (187.96 cm); Pain 9/10; 04:23 BP 119 / 75; Pulse 88; Resp 16; Pulse Ox 97% ; Pain 4/10; mt2 05:06 BP 121 / 81; Pulse 79; Resp 16; Pulse Ox 98% ; Pain 0/10; mt2 03:24 Body Mass Index 33.38 (117.93 kg, 187.96 cm) mt2 Miguel Coma Score: 03:34 Eye Response: spontaneous(4). Verbal Response: oriented(5). Motor Response: obeys rn commands(6). Total: 15. ED Course: 03:18 Patient arrived in ED. es 03:19 Terrie Cowan, MARKO is Primary Nurse. mt2 03:19 Mehran Caballero MD is Attending Physician. rn 03:27 Triage completed. mt2 03:27 Arm band placed on. mt2 03:29 Bed in low position. Call light in reach. Side rails up X 1. mt2 03:47 Radiology exam delayed due to Patient is currently having his ears cleaned by Terrie kw1 MARKO Cowan. Asked to come back in 10 minutes. 04:23 CT Head Brain wo Cont In Process Unspecified. EDMS 04:24 Ear irrigation: Route left ear with Normal Saline amount 250ml Patient tolerated well. mt2 04:24 No provider procedures requiring assistance completed. Patient did not have IV access mt2 during this emergency room visit. Administered Medications: 04:28 Drug: Bactrim (160 mg-800 mg (DS) 1 tablet Route: PO; mt2 05:07 Follow up: Response: No adverse reaction mt2 Outcome: 05:00 Discharge ordered by . rn 05:06 Discharged to home ambulatory. mt2 05:06 Condition: good 05:06 Discharge instructions given to patient, Instructed on discharge instructions, follow up and referral plans. medication usage, Demonstrated understanding of instructions, follow-up care, medications, Prescriptions given X 1. 05:09 Patient left the ED. mt2 Signatures: Dispatcher [employer] Mirtha Freire Roman, MD MD rn Wilhelm, Kimberly kw1 Terrie Cowan RN RN mt2
--- NOTE | 2020-03-25 05:02 | EDPHYS ---
Physician Documentation [facility] Name: Xavi Jarrell Age: 24 yrs Sex: Male : 1995 Arrival Date: 03/25/2020 Time: 03:18 Bed 18 Private MD: ED Physician Mehran Caballero HPI: 03/25 03:34 This 24 yrs old Male presents to ER via Ambulatory with complaints of rn Headache, Ear Pain, Bleeding from naval. 03:34 The patient complains of pain to the top of head. The patient describes the headache as rn aching, throbbing. Onset: The symptoms/episode began/occurred 2 day(s) ago. Associated signs and symptoms: Pertinent positives: ear pain, Pertinent negatives: altered mental status, fever, neck stiffness, rash, vision changes, vision loss, vomiting, weakness, vertigo. Severity of symptoms: At its worst the pain was moderate, in the emergency department the pain is unchanged. Headache History: Denies prior headaches. The patient has not experienced similar symptoms in the past. REports headache, 10, denies previous headaches, also reports left ear stopped up, can't hear out of left ear, and inflamed belly button. No trauma. No focal neuro complaints. No neck stiffness. No vision changes. No fever. . Historical: - Allergies: 03:27 No Known Allergies; mt2 - PMHx: 03:27 None; mt2 - Immunization history:: Adult Immunizations up to date. - Social history:: Smoking status: Patient denies any tobacco usage or history of. Patient/guardian denies using alcohol, street drugs. - Family history:: not pertinent. - Hospitalizations: : No recent hospitalization is reported. ROS: 03:34 Constitutional: Negative for fever, chills, and weight loss, Eyes: Negative for injury, rn pain, redness, and discharge, ENT: + left ear pain and can't hear Neck: Negative for injury, pain, and swelling, Cardiovascular: Negative for chest pain, palpitations, and edema, Respiratory: Negative for shortness of breath, cough, wheezing, and pleuritic chest pain, Abdomen/GI: Negative for abdominal pain, nausea, vomiting, diarrhea, and constipation, + belly button inflammation MS/Extremity: Negative for injury and deformity, Skin: Negative for injury, rash, and discoloration, Neuro: Negative for weakness, numbness, tingling, and seizure. Exam: 03:34 Constitutional: This is a well developed, well nourished patient who is awake, alert, rn and in no acute distress. Head/Face: Normocephalic, atraumatic. Eyes: Pupils equal round and reactive to light, extra-ocular motions intact. Lids and lashes normal. Conjunctiva and sclera are non-icteric and not injected. Cornea within normal limits. Periorbital areas with no swelling, redness, or edema. ENT: + left ear cerumen impaction, no erythema or inflammation Neck: Trachea midline, no masses palpated, and no cervical lymphadenopathy. Supple, full range of motion without nuchal rigidity, or vertebral point tenderness. No Meningismus. Abdomen/GI: soft, non-tender, mild erythema and tenderness inside belly button, no abscess identified. + clear drainage. Skin: Warm, dry with normal turgor. Normal color with no rashes, no lesions, and no evidence of cellulitis. Neuro: Awake and alert, GCS 15, oriented to person, place, time, and situation. Cranial nerves II-XII grossly intact. Motor strength 5/5 in all extremities. Sensory grossly intact. Cerebellar exam normal. Normal gait. Vital Signs: 03:24 BP 136 / 86; Pulse 63; Resp 16; Temp 98.1; Pulse Ox 98% on R/A; Weight 117.93 kg; mt2 Height 6 ft. 2 in. (187.96 cm); Pain 9/10; 04:23 BP 119 / 75; Pulse 88; Resp 16; Pulse Ox 97% ; Pain 4/10; mt2 05:06 BP 121 / 81; Pulse 79; Resp 16; Pulse Ox 98% ; Pain 0/10; mt2 03:24 Body Mass Index 33.38 (117.93 kg, 187.96 cm) mt2 [place] Coma Score: 03:34 Eye Response: spontaneous(4). Verbal Response: oriented(5). Motor Response: obeys rn commands(6). Total: 15. MDM: 03:19 Patient medically screened. rn 03:34 Differential diagnosis: migraine, tension headache, vasomotor headache. Data reviewed: rn vital signs, nurses notes. ED course: Nurse irrigating ear, will dc home if ct head negative with continuation of irrigation and debrox OTC for wax removal. Will give abx for omphalitis. . 04:22 Counseling: I had a detailed discussion with the patient and/or guardian regarding: the rn historical points, exam findings, and any diagnostic results supporting the discharge/admit diagnosis. Response to treatment: the patient's symptoms have markedly improved after treatment. ED course: After irrigation patient able to hear, off to CT head. . 03/25 03:33 Order name: CT Head Brain wo Cont rn 03/25 03:33 Order name: Misc. Order: Please irrigate left ear for cerumen impaction; Complete Time: rn 04:25 Administered Medications: 04:28 Drug: Bactrim (160 mg-800 mg (DS) 1 tablet Route: PO; mt2 05:07 Follow up: Response: No adverse reaction mt2 Disposition: 03/25/20 05:00 Discharged to Home. Impression: Impacted cerumen, left ear, Omphalitis not of , Headache. - Condition is Stable. - Discharge Instructions: Cellulitis, Adult, Earwax Buildup, Adult, General Headache Without Cause. - Prescriptions for Bactrim DS 800- 160 mg Oral Tablet - take 1 tablet by ORAL route every 12 hours for 10 days; 20 tablet. - Medication Reconciliation Form, Thank You Letter, Antibiotic Education, Prescription Opioid Use form. - Follow up: Private Physician; When: As needed; Reason: Recheck today's complaints, Re-evaluation by your physician. - Problem is new. - Symptoms have improved. Signatures: Dispatcher [employer] EDMS Mehran Caballero MD MD rn Toscano, Marlene, RN RN mt2 Corrections: (The following items were deleted from the chart) 05:09 05:00 03/25/2020 05:00 Discharged to Home. Impression: Impacted cerumen, left ear; mt2 Omphalitis not of ; Headache. Condition is Stable. Discharge Instructions: Cellulitis, Adult, Earwax Buildup, Adult, General Headache Without Cause. Prescriptions for Bactrim DS 800-160 mg Oral Tablet - take 1 tablet by ORAL route every 12 hours for 10 days; 20 tablet. and Forms are Medication Reconciliation Form, Thank You Letter, Antibiotic Education, Prescription Opioid Use. Follow up: Private Physician; When: As needed; Reason: Recheck today's complaints, Re-evaluation by your physician. Problem is new. Symptoms have improved. rn
[2020-03-25 05:14] VITALS: TEMP 98.1
[2020-03-25 05:17] VITALS: BP 121/81; O2SAT 98
--- NOTE | 2020-03-25 08:30 | RAD REPORT ---
EXAM DESCRIPTION: CT - Head Brain Wo Cont - 03/25/2020 4:23 am CLINICAL HISTORY: HEADACHE COMPARISON: None available TECHNIQUE: Axial CT of the head obtained from the skull apex to the skull base without contrast. FINDINGS: No acute intracranial hemorrhage identified. No mass, mass effect, shift of the midline, a bnormal extra-axial fluid collection or CT evidence of acute ischemic change identified. The ventricu lar system is unremarkable. No acute abnormalities of the supratentorial white matter, basal gangli a, cerebellum, or brainstem. Opacification and mucosal thickening of the paranasal sinuses. Mastoid air cells are well aerated. No skull fracture identified. Visualized orbits and globes are unremarkable. IMPRESSION: 1. No acute intracranial abnormality identified. This exam was performed according to our departmental dose-optimization program, which includes autom ated exposure control, adjustment of the mA and/or kV according to patient size and/or use of iterati ve reconstruction technique. Electronically signed by: Hermes Hunter 03/25/2020 4:35 AM CDT Due to temporary technical issues with the PACS/Fluency reporting system, reports are being signed by the in house radiologist without review as a courtesy to ensure prompt reporting. The interpreting r adiologist is fully responsible for the content of the report.
== END 2020-03-25 05:09 | disposition home or self-care (01) ==
LOC: ER 03:14
DX: H61.22 Impacted cerumen, left ear (principal); L08.82 Omphalitis not of newborn
CPT/HCPCS: 70450; 99284

== ENCOUNTER 2020-07-30 20:17 | Emergency (ER) | payer SELFPAY ==
--- NOTE | 2020-07-30 20:47 | EDPHYS ---
Physician Documentation [facility] Name: Xavi Jarrell Age: 24 yrs Sex: Male : 1995 Arrival Date: 07/30/2020 Time: 20:19 Bed 26 Private MD: ED Physician Mehran Caballero HPI: 07/30 20:45 This 24 yrs old Male presents to ER via Ambulatory with complaints of No Taste.jmm 20:45 Onset: The symptoms/episode began/occurred gradually, today. Modifying factors: The jmm symptoms are alleviated by nothing. the symptoms are aggravated by nothing. Associated signs and symptoms: Pertinent negatives: chest pain, diarrhea, ear ache, fever, nausea, rhinorrhea, sore throat, vomiting. This is a 24 year old male with no chronic medical conditions that presents to the ED with complaints of loss of taste. Denies cough, fever or sob. . Historical: - Allergies: 20:26 No Known Allergies; sg - PMHx: 20:26 None; sg - Immunization history:: Adult Immunizations up to date. - Social history:: Smoking status: Patient denies any tobacco usage or history of. ROS: 20:45 Constitutional: Negative for fever, chills, and weight loss, Cardiovascular: Negative jmm for chest pain, palpitations, and edema, Respiratory: Negative for shortness of breath, cough, wheezing, and pleuritic chest pain, Neuro: Negative for headache, weakness, numbness, tingling, and seizure. 20:45 All other systems are negative. Exam: 20:45 Constitutional: This is a well developed, well nourished patient who is awake, alert, jmm and in no acute distress. Head/Face: atraumatic. Eyes: EOMI, no conjunctival erythema appreciated ENT: Moist Mucus Membranes Neck: Trachea midline, Supple Chest/axilla: Normal chest wall appearance and motion. Cardiovascular: Regular rate and rhythm. No edema appreciated Respiratory: Normal respirations, no respiratory distress appreciated Abdomen/GI: Non distended, soft Back: Normal ROM Skin: General appearance color normal MS/ Extremity: Moves all extremities, no obvious deformities appreciated, no edema noted to the lower extremities Neuro: Awake and alert, normal gait Psych: Behavior is normal, Mood is normal, Patient is cooperative and pleasant Vital Signs: 20:23 BP 112 / 70; Pulse 77; Resp 16; Temp 98.9; Pulse Ox 99% on R/A; Pain 0/10; sg MDM: 20:[address] [facility] 20:46 Data reviewed: vital signs, nurses notes. Counseling: I had a detailed discussion with danette the patient and/or guardian regarding: the historical points, exam findings, and any diagnostic results supporting the discharge/admit diagnosis, the need for outpatient follow up, to return to the emergency department if symptoms worsen or persist or if there are any questions or concerns that arise at home. 07/30 20:22 Order name: COVID-19 ernestina Administered Medications: No medications were administered Disposition: 21:16 Co-signature as Attending Physician, Mehran Caballero MD. rn Disposition: 07/30/20 20:47 Discharged to Home. Impression: Anosmia. - Condition is Stable. - Discharge Instructions: COVID-19. - Medication Reconciliation Form, Thank You Letter, Antibiotic Education, Prescription Opioid Use form. - Follow up: Private Physician; When: 2 - 3 days; Reason: Recheck today's complaints, Continuance of care, Re-evaluation by your physician. Signatures: Dispatcher [employer] EDMS Dustin Carlos RN RN Ethan Ford PA PA jmm Nieto, Roman, MD MD rn Bryson, James, RN RN jb4 Corrections: (The following items were deleted from the chart) 21:03 20:47 07/30/2020 20:47 Discharged to Home. Impression: Anosmia. Condition is Stable. jb4 Forms are Medication Reconciliation Form, Thank You Letter, Antibiotic Education, Prescription Opioid Use. Follow up: Private Physician; When: 2 - 3 days; Reason: Recheck today's complaints, Continuance of care, Re-evaluation by your physician. danette
--- NOTE | 2020-07-30 20:47 | ER ---
Nurse's Notes [facility] Name: Xavi Jarrell Age: 24 yrs Sex: Male : 1995 Arrival Date: 07/30/2020 Time: 20:19 Bed 26 Private MD: Diagnosis: Anosmia Presentation: 07/30 20:23 Chief complaint: Patient states: Lynda had fever TMAX 101 at home, reports having no sg taste at this time for triage, uncertain when he first notice his taste was going away. Coronavirus screen: loss of taste or smell, Client presents with at least one sign or symptom that may indicate coronavirus-19. Standard/surgical mask placed on the client. Provider contacted for isolation considerations. Ebola Screen: Patient negative for fever greater than or equal to 101.5 degrees Fahrenheit, and additional compatible Ebola Virus Disease symptoms Patient denies exposure to infectious person. Patient denies travel to an Ebola-affected area in the 21 days before illness onset. No symptoms or risks identified at this time. Initial Sepsis Screen: Does the patient meet any 2 criteria? No. Patient's initial sepsis screen is negative. Does the patient have a suspected source of infection? No. Patient's initial sepsis screen is negative. Risk Assessment: Do you want to hurt yourself or someone else? Patient reports no desire to harm self or others. Onset of symptoms was July 29, 2020. Care prior to arrival: None. Transition of care: patient was not received from another setting of care. 20:23 Acuity: DEVAN 4 sg 20:23 Method Of Arrival: Ambulatory sg Historical: - Allergies: 20:26 No Known Allergies; sg - PMHx: 20:26 None; sg - Immunization history:: Adult Immunizations up to date. - Social history:: Smoking status: Patient denies any tobacco usage or history of. Screenin:01 Abuse screen: Denies threats or abuse. Nutritional screening: No deficits noted. jb4 Tuberculosis screening: No symptoms or risk factors identified. Fall Risk None identified. Assessment: 21:01 General: Appears in no apparent distress. comfortable, Behavior is calm, cooperative, jb4 appropriate for age. Pain: Denies pain. Neuro: Level of Consciousness is awake, alert, obeys commands, Oriented to person, place, time, situation. Cardiovascular: Patient's skin is warm and dry. Respiratory: Airway is patent Respiratory effort is even, unlabored, Respiratory pattern is regular, symmetrical. GI: No signs and/or symptoms were reported involving the gastrointestinal system. : No signs and/or symptoms were reported regarding the genitourinary system. EENT: No signs and/or symptoms were reported regarding the EENT system. Derm: Skin is intact, Skin is pink, warm \T\ dry. Musculoskeletal: Circulation, motion, and sensation intact. Range of motion: intact in all extremities. Vital Signs: 20:23 BP 112 / 70; Pulse 77; Resp 16; Temp 98.9; Pulse Ox 99% on R/A; Pain 0/10; sg ED Course: 20:19 Patient arrived in ED. 3 20:22 Ethan Ford PA is PHCP. [facility] 20:22 Mehran Caballero MD is Attending Physician. [facility] 20:23 Arm band placed on. sg 20:26 Triage completed. sg 20:38 COVID swab sent to lab. 3 20:52 Conrad Rayo, RN is Primary Nurse. jb4 21:01 Patient has correct armband on for positive identification. Bed in low position. Call jb4 light in reach. Side rails up X 1. 21:01 No provider procedures requiring assistance completed. Patient did not have IV access jb4 during this emergency room visit. Administered Medications: No medications were administered Outcome: 20:47 Discharge ordered by . [facility] 21:01 Discharged to home ambulatory. jb4 21:01 Condition: stable 21:01 Discharge instructions given to patient, Instructed on discharge instructions, follow up and referral plans. Demonstrated understanding of instructions, follow-up care. 21:03 Patient left the ED. jb4 Addendum: 08/02/2020 21:07 Addendum: COVID-19 Result: Positive result giiven to ED physician to notify pt. d m5 Physician: Cristian Lobato MD Physician was able to contact pt and pt was notified of positive COVID-19 swab result. Physician answered pt questions. Signatures: Mary Salas, RN RN dm5 Dustin Carlos RN RN sg Mickail, Joel, PA PA Conrad Barreto, MARKO RN jb4 Javed Hodges jp3 Giancarlo Roberto 3
== END 2020-07-30 21:03 | disposition home or self-care (01) ==
LOC: ER 20:17
DX: U07.1 COVID-19 (principal)
CPT/HCPCS: 99281; U0002

== ENCOUNTER 2021-03-31 13:58 | Emergency (ER) | payer SELFPAY ==
--- NOTE | 2021-03-31 14:53 | EDPHYS ---
Physician Documentation [facility] Name: Xavi Jarrell Age: 25 yrs Sex: Male : 1995 Arrival Date: 03/31/2021 Time: 14:01 Bed Waiting Private MD: ED Physician Alden Hawkins HPI: 03/31 15:47 This 25 yrs old Male presents to ER via Ambulatory with complaints of Ear Pain.kb 15:47 The patient presents with pain, moderate. The complaints affect the right ear and left kb ear. Onset: The symptoms/episode began/occurred yesterday. Modifying factors: The symptoms are alleviated by nothing, the symptoms are aggravated by nothing. Associated signs and symptoms: The patient has no apparent associated signs or symptoms. Severity of symptoms: At their worst the symptoms were mild in the emergency department the symptoms are unchanged. The patient has not experienced similar symptoms in the past. The patient has not recently seen a physician. Patient reports bilateral ear pain since yesterday. Denies fever or drainage.. Historical: - Allergies: 14:53 No Known Allergies; jl7 - Home Meds: 14:53 None [Active]; jl7 - PMHx: 14:53 None; jl7 - PSHx: 14:53 None; jl7 - Immunization history:: Adult Immunizations up to date, Client reports having NOT received the Covid vaccine. - Social history:: Smoking status: Patient denies any tobacco usage or history of. ROS: 16:14 Constitutional: Negative for fever, chills, and weight loss. kb 16:14 ENT: Positive for ear pain. 16:14 All other systems are negative. Exam: 16:14 Constitutional: This is a well developed, well nourished patient who is awake, alert, kb and in no acute distress. Head/Face: Normocephalic, atraumatic. Respiratory: Respirations even and unlabored. No increased work of breathing, no retractions or nasal flaring. Skin: Warm, dry with normal turgor. Normal color. MS/ Extremity: Pulses equal, no cyanosis. Neurovascular intact. Full, normal range of motion. Neuro: Awake and alert, GCS 15, oriented to person, place, time, and situation. Moves all extremities. Normal gait. Psych: Awake, alert, with orientation to person, place and time. Behavior, mood, and affect are within normal limits. 16:14 ENT: External ear(s): are unremarkable, Ear canal(s): purulent discharge, that is minimal, bilaterally, swelling, that is moderate, bilaterally. Vital Signs: 14:52 BP 142 / 81; Pulse 98; Resp 15; Temp 97.6; Pulse Ox 99% ; Weight 129.27 kg; Pain 9/10; jl7 MDM: 14:52 Patient medically screened. kb 15:47 Data reviewed: vital signs, nurses notes. Data interpreted: Pulse oximetry: on room air kb is 99 %. Interpretation: normal. Counseling: I had a detailed discussion with the patient and/or guardian regarding: the historical points, exam findings, and any diagnostic results supporting the discharge/admit diagnosis, the need for outpatient follow up, a family practitioner, to return to the emergency department if symptoms worsen or persist or if there are any questions or concerns that arise at home. Administered Medications: No medications were administered Disposition: 04/01 07:19 Co-signature as Attending Physician, Alden Hawkins MD I agree with the assessment and kdr plan of care. Disposition Summary: 03/31/21 14:53 Discharge Ordered Location: Home kb Condition: Stable kb Diagnosis - Unspecified otitis externa, left ear kb - Unspecified otitis externa, right ear kb Followup: kb - With: Emergency Department - When: As needed - Reason: Worsening of condition Followup: kb - With: Private Physician - When: 2 - 3 days - Reason: Recheck today's complaints, Continuance of care, Re-evaluation by your physician Discharge Instructions: - Discharge Summary Sheet kb - Otitis Externa, [id number] kb - Ear Drops, Adult, [id number] kb Forms: - Medication Reconciliation Form kb - Thank You Letter kb - Antibiotic Education kb - Prescription Opioid Use kb Prescriptions: - Ciprodex 0.3-0.1 % Otic Drops, Suspension - instill 4 drops by OTIC route every 12 hours for 7 days , for ears ONLY; 1 kb Container; Refills: 0, Product Selection Permitted Signatures: Shy Gunter, FELISA-C Alden Montano MD MD kdr Leal, Jahala, RN RN jl7
--- NOTE | 2021-03-31 14:53 | ER ---
Nurse's Notes [facility] Name: Xavi Jarrell Age: 25 yrs Sex: Male : 1995 Arrival Date: 03/31/2021 Time: 14:01 Bed Waiting Private MD: Diagnosis: Unspecified otitis externa, left ear;Unspecified otitis externa, right ear Presentation: 03/31 14:52 Chief complaint: Patient states: Bilateral ear pain since yesterday. Coronavirus jl7 screen: Client denies travel out of the [place] in the last 14 days. At this time, the client does not indicate any symptoms associated with coronavirus-19. Ebola Screen: No symptoms or risks identified at this time. Initial Sepsis Screen: Does the patient meet any 2 criteria? No. Patient's initial sepsis screen is negative. Does the patient have a suspected source of infection? No. Patient's initial sepsis screen is negative. Risk Assessment: Do you want to hurt yourself or someone else? Patient reports no desire to harm self or others. Onset of symptoms was March 30, 2021. 14:52 Method Of Arrival: Ambulatory [facility] 14:52 Acuity: DEVAN 4 jl7 Historical: - Allergies: 14:53 No Known Allergies; jl7 - Home Meds: 14:53 None [Active]; jl7 - PMHx: 14:53 None; jl7 - PSHx: 14:53 None; jl7 - Immunization history:: Adult Immunizations up to date, Client reports having NOT received the Covid vaccine. - Social history:: Smoking status: Patient denies any tobacco usage or history of. Screenin:53 Abuse screen: Denies threats or abuse. Denies injuries from another. Nutritional jl7 screening: No deficits noted. Tuberculosis screening: No symptoms or risk factors identified. Fall Risk None identified. Assessment: 14:53 Reassessment: MELANIE Begum in triage assessing pt. jl7 Vital Signs: 14:52 BP 142 / 81; Pulse 98; Resp 15; Temp 97.6; Pulse Ox 99% ; Weight 129.27 kg; Pain 9/10; jl7 ED Course: 14:01 Patient arrived in ED. ds1 14:44 Shy Gunter [facility]C [facility] kb 14:44 Alden Hawkins MD is Attending Physician. kb 14:53 Triage completed. jl7 14:53 Arm band placed on right wrist. jl7 14:53 Patient has correct armband on for positive identification. jl7 14:53 No provider procedures requiring assistance completed. Patient did not have IV access jl7 during this emergency room visit. Administered Medications: No medications were administered Outcome: 14:53 Discharge ordered by . kb 15:01 Discharged to home ambulatory. jl7 15:01 Condition: stable 15:01 Discharge instructions given to patient, Instructed on discharge instructions, follow up and referral plans. medication usage, Demonstrated understanding of instructions, follow-up care, medications, Prescriptions given X 1. 15:01 Patient left the ED. jl7 Signatures: Shy Gunter, WAREHOUSE GUARD-C WAREHOUSE GUARD-Carlie Garcia ds1 Britney Daigle, RN RN jl7
[2021-03-31 15:09] VITALS: BP 142/81; TEMP 97.6; O2SAT 99
== END 2021-03-31 15:01 | disposition home or self-care (01) ==
LOC: ER 13:58
DX: H60.93 Unspecified otitis externa, bilateral (principal)
CPT/HCPCS: 99282

== ENCOUNTER 2021-10-13 21:31 | Emergency (ER) | payer OTHER, SELFPAY ==
[2021-10-13] MEDS ORDERED: ONDANSETRON 4 MG/2 ML VIAL ONE (22:49)
[2021-10-13] MEDS ORDERED: MORPHINE 4 MG/ML SYR ONE (22:49)
[2021-10-13 23:29] LABS: Absolute Lymphocytes (CBC) 2.7 K/uL (0.7-4.9); Hematocrit 45.3 % (39.6-49.0); Lymphocytes % 21.5 % (15.3-44.8); MPV 8.7 fL (7.6-11.3); RBC Red Blood Cell Count 5.22 M/uL (4.33-5.43)
[2021-10-13] MEDS ORDERED: TAMSULOSIN 0.4 MG SR CAP ONE (23:30)
[2021-10-13] MEDS ORDERED: KETOROLAC 30 MG/ML INJ ONE (23:30)
[2021-10-13] MEDS ORDERED: NA CHLORIDE 0.9% 500 ML ONE (23:31)
[2021-10-13] MEDS ORDERED: MAGNESIUM SULFATE 1 gm IVPB 1 GM/100 ML BAG IV ONE (23:31)
[2021-10-14 00:01] LABS: Urine Blood 3+ (Negative); Urine Glucose Negative (Negative); Urine Protein 3+ (Negative); Urine Specific Gravity >=1.030 (1.005-1.030)
[2021-10-14 00:07] LABS: Albumin 3.8 g/dL (3.4-5.0); Bilirubin Direct 0.1 mg/dL (0-0.2); Bilirubin Total 0.5 mg/dL (0.2-1.0); Protein, Total 8.8 g/dL (6.4-8.2)
[2021-10-14 00:18] LABS: Potassium 4.1 mmol/L (3.5-5.1)
[2021-10-14 00:23] LABS: Urine Bacteria <20 /HPF (NONE SEEN); Urine RBC >50 /HPF (NONE SEEN)
[2021-10-14 00:24] LABS: Urine Urothelial Cells <5 /HPF (NONE SEEN)
--- NOTE | 2021-10-14 01:33 | ER ---
Nurse's Notes [facility] Name: Xavi Jarrell Age: 26 yrs Sex: Male : 1995 Arrival Date: 10/13/2021 Time: 21:33 Bed 17 Private MD: Diagnosis: Urinary calculus, unspecified Presentation: 10/13 21:43 Chief complaint: Patient states: States "The pain started with my lower back then moved ll3 to my left side", states the pain "started out of no where" pain of 9/10 since 1900. Coronavirus screen: At this time, the client does not indicate any symptoms associated with coronavirus-19. Ebola Screen: No symptoms or risks identified at this time. Initial Sepsis Screen: Does the patient meet any 2 criteria? No. Patient's initial sepsis screen is negative. Does the patient have a suspected source of infection? No. Patient's initial sepsis screen is negative. Risk Assessment: Do you want to hurt yourself or someone else? Patient reports no desire to harm self or others. Onset of symptoms was October 13, 2021 at 19:00. 21:43 Method Of Arrival: Ambulatory ll3 21:43 Acuity: DEVAN 3 ll3 Triage Assessment: 21:47 General: Appears uncomfortable, Behavior is calm, cooperative. Pain: Complains of pain ll3 in posterior aspect of left lateral abdomen, lower back Pain currently is 9 out of 10 on a pain scale. Quality of pain is described as aching, crampy, Is continuous. Neuro: Level of Consciousness is awake, alert, obeys commands, Oriented to person, place, time, situation. Cardiovascular: Patient's skin is warm and dry. Respiratory: Respiratory effort is even, unlabored, Respiratory pattern is regular, symmetrical, Denies shortness of breath. Derm: Skin is pink, warm \\T\\ dry. Historical: - Allergies: 21:47 No Known Allergies; ll3 - Home Meds: 21:47 None [Active]; ll3 - PMHx: 21:47 None; ll3 - PSHx: 21:47 None; ll3 - Immunization history:: Client reports receiving the 2nd dose of the Covid vaccine. - Social history:: Smoking status: Patient denies any tobacco usage or history of. - Family history:: not pertinent. - Hospitalizations: : No recent hospitalization is reported. Screenin:33 Abuse screen: Denies threats or abuse. Nutritional screening: No deficits noted. al4 Tuberculosis screening: No symptoms or risk factors identified. Fall Risk No fall in past 12 months (0 pts). No IV (0 pts). Ambulatory Aid- None/Bed Rest/Nurse Assist (0 pts). Gait- Normal/Bed Rest/Wheelchair (0 pts) Mental Status- Oriented to own ability (0 pts). Total Shay Fall Scale indicates No Risk (0-24 pts). Assessment: 22:31 General: Appears in no apparent distress. uncomfortable, Behavior is cooperative, al4 restless. Pain: Complains of pain in left upper quadrant. Neuro: Level of Consciousness is awake, alert, obeys commands, Oriented to person, place, time, situation. Cardiovascular: Capillary refill < 3 seconds Patient's skin is warm and dry. Respiratory: Airway is patent Respiratory effort is even, unlabored, Respiratory pattern is regular, symmetrical. GI: Abd is soft X 4 quads Abdomen is tender to palpation in left upper quadrant Patient currently denies diarrhea, nausea, vomiting. : Denies burning with urination, inability to void, urinary frequency. Musculoskeletal: Range of motion: intact in all extremities. 23:03 Reassessment: Patient and/or family updated on plan of care and expected duration. Pain al4 level reassessed. 23:53 Reassessment: Patient is alert, oriented x 3, equal unlabored respirations, skin al4 warm/dry/pink. 10/14 00:34 Reassessment: Patient and/or family updated on plan of care and expected duration. Pain al4 level reassessed. Patient denies pain at this time. 01:00 Reassessment: Report given to MARKO Barger. al4 Vital Signs: 10/13 21:43 BP 126 / 91; Pulse 102; Resp 18; Temp 98.2; Pulse Ox 99% ; Weight 127.01 kg (R); Height ll3 6 ft. 3 in. (190.50 cm) (R); Pain 9/10; 22:33 BP 128 / 77; Pulse 106; Resp 18 S; Pulse Ox 95% on R/A; Pain 9/10; al4 23:40 BP 137 / 65; Pulse 86; Resp 18 S; Pulse Ox 97% on R/A; al4 10/14 00:15 BP 133 / 78; Pulse 86; Resp 18; Pulse Ox 97% ; Pain 1/10; al4 01:41 BP 132 / 77; Pulse 71; Resp 20; sf1 10/13 21:43 Body Mass Index 35.00 (127.01 kg, 190.50 cm) ll3 ED Course: 10/13 21:33 Patient arrived in ED. ja2 21:47 Triage completed. ll3 21:47 Arm band placed on right wrist. ll3 21:56 Mehran Caballero MD is Attending Physician. rn 22:16 CT Stone Protocol In Process Unspecified. EDMS 22:20 Adis Barrera is Primary Nurse. al4 22:33 Patient has correct armband on for positive identification. Bed in low position. Call al4 light in reach. 23:02 Basic Metabolic Panel Sent. al4 23:02 CBC with Diff Sent. al4 23:02 Hepatic Function Sent. al4 23:02 Lipase Sent. al4 23:02 Urine Microscopic Only Sent. al4 23:02 Inserted saline lock: 20 gauge in right antecubital area, using aseptic technique. al4 Blood collected. 10/14 00:38 Urine Dipstick-Ancillary Sent. al4 01:41 No provider procedures requiring assistance completed. IV discontinued, intact, sf1 bleeding controlled, No redness/swelling at site. Pressure dressing applied. Administered Medications: 10/13 23:05 Not Given (Duplicate Order): morphine 4 mg IVP once; RASS on ADMIN: Combtv4, Very rn Agttd3, Agttd2, Rstlss1, AlertClm0, Drwsy-1, Lt Sdtn-2, Mod Sdtn-3, Dp Sdtn-4, UnArsble-5 23:38 Drug: Flomax (tamsulosin) 0.4 mg Route: PO; al4 10/14 00:37 Follow up: Response: No adverse reaction al4 10/13 23:38 Drug: NS 0.9% 500 ml Route: IV; Rate: bolus; Site: right antecubital; al4 10/14 00:37 Follow up: Response: No adverse reaction; IV Status: Completed infusion; IV Intake: al4 500ml 10/13 23:39 Drug: Zofran (Ondansetron) 4 mg Route: IVP; Site: right antecubital; al4 10/14 00:37 Follow up: Response: No adverse reaction al4 10/13 23:39 Drug: Ketorolac 30 mg Route: IVP; Site: right antecubital; al4 10/14 00:37 Follow up: Response: No adverse reaction; Marked relief of symptoms al4 10/13 23:39 Drug: Magnesium Sulfate 1 grams Route: IVPB; Infused Over: 1 hrs; Site: right al4 antecubital; 10/14 00:37 Follow up: Response: No adverse reaction; IV Status: Completed infusion; IV Intake: al4 100ml Intake: 00:37 IV: 100ml; Total: 100ml. al4 00:37 IV: 500ml; Total: 600ml. al4 Outcome: 01:32 Discharge ordered by . rn 01:41 Discharged to home ambulatory. sf1 01:41 Condition: good 01:41 Discharge instructions given to patient, family, Instructed on discharge instructions, follow up and referral plans. Demonstrated understanding of instructions, follow-up care, medications, Prescriptions given X 2. 01:42 Patient left the ED. sf1 Signatures: Dispatcher [employer] EDMS Mehran Caballero MD MD rn Alexander, Jessica ja2 Loubet, Lynsea, RN RN 3 Adis Barrera4 Denita Abraham RN RN sf1
--- NOTE | 2021-10-14 01:33 | EDPHYS ---
Physician Documentation [facility] Name: Xavi Jarrell Age: 26 yrs Sex: Male : 1995 Arrival Date: 10/13/2021 Time: 21:33 Bed 17 Private MD: ED Physician Mehran Caballero HPI: 10/13 22:41 This 26 yrs old Male presents to ER via Ambulatory with complaints of Flank rn Pain, abd pain. 22:41 The patient complains of pain in the left low back and left mid back. The pain radiates rn to the abdomen. Onset: The symptoms/episode began/occurred just prior to arrival. Modifying factors: The symptoms are alleviated by nothing. the symptoms are aggravated by nothing. Associated signs and symptoms: Pertinent positives: nausea, Pertinent negatives: diarrhea, dysuria, fever, urinary frequency, headache, hematuria, pain radiating to the lower extremities. Severity of pain: At its worst the pain was moderate in the emergency department the pain is unchanged. The patient has not experienced similar symptoms in the past. The patient has not recently seen a physician. Pt reports sudden onset left back/flank pain, radiates to left abdomen, started just prior to arrival. No fever. Was about to eat. No trauma. No urinary symptoms. No vomiting/diarrhea. No hx of kidney stones. . Historical: - Allergies: 21:47 No Known Allergies; ll3 - Home Meds: 21:47 None [Active]; ll3 - PMHx: 21:47 None; ll3 - PSHx: 21:47 None; ll3 - Immunization history:: Client reports receiving the 2nd dose of the Covid vaccine. - Social history:: Smoking status: Patient denies any tobacco usage or history of. - Family history:: not pertinent. - Hospitalizations: : No recent hospitalization is reported. ROS: 22:41 Constitutional: Negative for fever, chills, and weight loss, Eyes: Negative for injury, rn pain, redness, and discharge, Neck: Negative for injury, pain, and swelling, Cardiovascular: Negative for chest pain, palpitations, and edema, Respiratory: Negative for shortness of breath, cough, wheezing, and pleuritic chest pain, Abdomen/GI: + LLQ abd pain Back: + left lower back pain : Negative for injury, bleeding, discharge, and swelling, MS/Extremity: Negative for injury and deformity, Skin: Negative for injury, rash, and discoloration, Neuro: Negative for headache, weakness, numbness, tingling, and seizure. Exam: 22:41 Constitutional: This is a well developed, well nourished patient who is awake, alert, rn and in no acute distress. Head/Face: Normocephalic, atraumatic. Eyes: Periorbital areas with no swelling, redness, or edema. Cardiovascular: tachycardic, regular. No pulse deficits. Respiratory: No increased work of breathing, no retractions or nasal flaring. Abdomen/GI: soft, + LLQ tenderness, no rebound, no masses Back: No spinal tenderness. No costovertebral tenderness. Full range of motion. Skin: Warm, dry MS/ Extremity: Pulses equal, no cyanosis. Neuro: Awake and alert, GCS 15, oriented to person, place, time, and situation. Cranial nerves II-XII grossly intact. Motor strength 5/5 in all extremities. Sensory grossly intact. Cerebellar exam normal. Normal gait. Vital Signs: 21:43 BP 126 / 91; Pulse 102; Resp 18; Temp 98.2; Pulse Ox 99% ; Weight 127.01 kg (R); Height ll3 6 ft. 3 in. (190.50 cm) (R); Pain 9/10; 22:33 BP 128 / 77; Pulse 106; Resp 18 S; Pulse Ox 95% on R/A; Pain 9/10; al4 23:40 BP 137 / 65; Pulse 86; Resp 18 S; Pulse Ox 97% on R/A; al4 10/14 00:15 BP 133 / 78; Pulse 86; Resp 18; Pulse Ox 97% ; Pain 1/10; al4 01:41 BP 132 / 77; Pulse 71; Resp 20; sf1 10/13 21:43 Body Mass Index 35.00 (127.01 kg, 190.50 cm) ll3 MDM: 10/13 21:56 Patient medically screened. rn 10/14 01:30 Differential diagnosis: nephrolithiasis, UTI. Data reviewed: vital signs, nurses notes, corn sheller test result(s), radiologic studies, CT scan, and as a result, I will discharge patient. Counseling: I had a detailed discussion with the patient and/or guardian regarding: the historical points, exam findings, and any diagnostic results supporting the discharge/admit diagnosis, lab results, radiology results, the need for outpatient follow up, to return to the emergency department if symptoms worsen or persist or if there are any questions or concerns that arise at home. Response to treatment: the patient's symptoms have markedly improved after treatment, and as a result, I will discharge patient. Special discussion: I discussed with the patient/guardian in detail that at this point there is no indication for admission to the hospital. It is understood, however, that if the symptoms persist or worsen the patient needs to return immediately for re-evaluation. ED course: Pt markedly improved, is nearly pain free, requesting to go home, will dc home to pass stone with prn pain medication and zofran. 2mm stone, likely in bladder now judging by level of comfort patient is exhibiting.. 10/13 22:30 Order name: Basic Metabolic Panel; Complete Time: : 10/13 22:30 Order name: CBC with Diff; Complete Time: 10/13 22:30 Order name: Hepatic Function; Complete Time: : rn 10/13 22:30 Order name: Lipase; Complete Time: rn 10/13 22:30 Order name: Urine Microscopic Only; Complete Time: 10/14 00:02 Order name: Urine Dipstick-Ancillary; Complete Time: EDAR 10/13 21:53 Order name: CT Stone Protocol 10/14 00:03 Order name: Urine Dipstick-Ancillary [facility] 10/13 22:30 Order name: IV Saline Lock; Complete Time: 23: 10/13 22:30 Order name: Labs collected and sent; Complete Time: 23: rn 10/13 22:30 Order name: Urine Dipstick-Ancillary (obtain specimen); Complete Time: 00:10 rn Administered Medications: 10/13 23:05 Not Given (Duplicate Order): morphine 4 mg IVP once; RASS on ADMIN: Combtv4, Very rn Agttd3, Agttd2, Rstlss1, AlertClm0, Drwsy-1, Lt Sdtn-2, Mod Sdtn-3, Dp Sdtn-4, UnArsble-5 23:38 Drug: Flomax (tamsulosin) 0.4 mg Route: PO; al4 10/14 00:37 Follow up: Response: No adverse reaction al4 10/13 23:38 Drug: NS 0.9% 500 ml Route: IV; Rate: bolus; Site: right antecubital; al4 10/14 00:37 Follow up: Response: No adverse reaction; IV Status: Completed infusion; IV Intake: al4 500ml 10/13 23:39 Drug: Zofran (Ondansetron) 4 mg Route: IVP; Site: right antecubital; al4 10/14 00:37 Follow up: Response: No adverse reaction al4 10/13 23:39 Drug: Ketorolac 30 mg Route: IVP; Site: right antecubital; al4 10/14 00:37 Follow up: Response: No adverse reaction; Marked relief of symptoms al4 10/13 23:39 Drug: Magnesium Sulfate 1 grams Route: IVPB; Infused Over: 1 hrs; Site: right al4 antecubital; 10/14 00:37 Follow up: Response: No adverse reaction; IV Status: Completed infusion; IV Intake: al4 100ml Disposition Summary: 10/14/21 01:32 Discharge Ordered Location: Home rn Problem: new rn Symptoms: have improved rn Condition: Stable rn Diagnosis - Urinary calculus, unspecified rn Followup: rn - With: Private Physician - When: As needed - Reason: Recheck today's complaints, Re-evaluation by your physician Discharge Instructions: - Discharge Summary Sheet rn - Kidney Stones rn - Renal Colic rn Forms: - Medication Reconciliation Form rn - Thank You Letter rn - Antibiotic sports apparel internship - Prescription Opioid Use rn Prescriptions: - ondansetron 4 mg Oral tablet,disintegrating - place 1 tablet by TRANSLINGUAL route every 8 hours As needed; 15 tablet; rn Refills: 0, Product Selection Permitted - Tramadol 50 mg Oral Tablet - take 1 tablet by ORAL route every 8 hours as needed; 15 tablet; Refills: 0, rn Product Selection Permitted Signatures: Dispatcher [employer] Mehran Godinez MD MD rn Loubet, Lynsea, RN RN 3 Adis Barrera
[2021-10-14 03:32] VITALS: TEMP 98.2
[2021-10-14 03:35] VITALS: O2SAT 97
[2021-10-14 03:37] VITALS: BP 132/77
--- NOTE | 2021-10-14 12:52 | RAD REPORT ---
EXAM DESCRIPTION: CT - Stone Protocol - 10/14/2021 6:50 am CLINICAL HISTORY: 26 years Male flank pain, acute onset. COMPARISON: None TECHNIQUE: Images were obtained in axial, sagittal, and coronal planes. No intravenous or oral contr ast was administered. This exam was performed according to our departmental dose-optimization program which includes use of Automated Exposure Control, adjustment of the mA and/or kV according to patient size and/or use of iterative reconstruction technique. FINDINGS: No abnormality involving the liver, spleen, pancreas, or adrenal glands bilaterally. Contr acted gallbladder. Retained food debris within the stomach. 2 mm calculus left pelvic ureteral junction with associated mild left hydronephrosis. No obstructing renal or ureteral calculi. No hydronephrosis on right. Unremarkable bladder. Appendix within normal limits. No bowel obstruction, perforation, or inflammation. No acute osseous abnormality. No dilatation of abdominal aorta. No adenopathy or abnormal fluid collections seen. No abnormality lower lungs bilaterally. IMPRESSION: 2 mm calculus left pelvic ureteral junction with associated mild left hydronephrosis. Ot herwise unremarkable study. Electronically signed by: Rosa Gotti MD 10/13/2021 10:29 PM [employer] Due to temporary technical issues with the PACS/Fluency reporting system, reports are being signed by the in house radiologists without review as a courtesy to insure prompt reporting. The interpreting radiologist is fully responsible for the content of the report.
== END 2021-10-14 01:42 | disposition home or self-care (01) ==
LOC: ER 21:31
DX: N20.9 Urinary calculus, unspecified (principal)
CPT/HCPCS: 36415; 74176; 76377; 80048; 80076; 81003; 81015; 83690; 85025; 96365; 96375; 99284; J2405; J3475; J7040

== ENCOUNTER 2022-02-04 16:48 | Emergency (ER) | payer SELFPAY ==
[2022-02-04] MEDS ORDERED: KETOROLAC 30 MG/ML INJ ONE (17:12)
[2022-02-04 17:13] LABS: Absolute Lymphocytes (CBC) 3.1 K/uL (0.7-4.9); Hematocrit 45.8 % (39.6-49.0); Lymphocytes % 24.4 % (15.3-44.8); MPV 7.9 fL (7.6-11.3); RBC Red Blood Cell Count 5.34 M/uL (4.33-5.43)
[2022-02-04 17:25] LABS: Potassium 4.7 mmol/L (3.5-5.1)
--- NOTE | 2022-02-04 17:38 | RAD REPORT ---
EXAM DESCRIPTION: CTStone Protocol - 02/04/2022 5:25 pm CLINICAL HISTORY: left flank pain, r/o stone COMPARISON: Stone Protocol dated 10/13/2021 TECHNIQUE: CT of the abdomen and pelvis was performed. All CT scans are performed using dose optimization technique as appropriate and may include automated exposure control or mA/KV adjustment according to patient size. FINDINGS: Lower chest: No acute abnormality. Liver: Hepatic steatosis Biliary: No biliary ductal dilatation. Stomach: No significant focal abnormality. Duodenum: No significant focal abnormality. Pancreas: No significant abnormality. Spleen: No significant abnormality. Adrenal: No suspicious lesions. Kidney/ureter: Mild left-sided hydroureteronephrosis secondary to a 4 mm stone at the left UVJ. Retroperitoneum: No retroperitoneal adenopathy. Vascular: No aneurysm. Bowel: No significant focal abnormality. Normal appendix. Peritoneum: No ascites or free air. Bladder: Grossly unremarkable. Reproductive: No adnexal masses. Bones: No acute fracture. Other: n/a IMPRESSION: Mild left-sided hydroureteronephrosis secondary to a 4 millimeters stone at the left UVJ .
[2022-02-04 18:04] LABS: Urine Blood 2+ (Negative); Urine Glucose Negative (Negative); Urine Protein 3+ (Negative); Urine Specific Gravity >=1.030 (1.005-1.030)
[2022-02-04] MEDS ORDERED: TAMSULOSIN 0.4 MG SR CAP ONE (18:15)
[2022-02-04] MEDS ORDERED: MAGNESIUM SULFATE 1 gm IVPB 1 GM/100 ML BAG IV ONE (18:16)
[2022-02-04 18:28] LABS: Urine Bacteria <20 /HPF (NONE SEEN); Urine Mucus 1+ /HPF (NONE SEEN)
--- NOTE | 2022-02-04 18:33 | ER ---
Nurse's Notes [facility] Name: Xavi Jarrell Age: 26 yrs Sex: Male : 1995 Arrival Date: 02/04/2022 Time: 16:49 Bed 19 Private MD: Diagnosis: Calculus of kidney with calculus of ureter Presentation: 02/04 16:55 Chief complaint: Patient states: pain with urination x 2 days ago, pt reports LLQ pain aa5 that began this morning. Denies nausea/vomiting/diarrhea. Coronavirus screen: At this time, the client does not indicate any symptoms associated with coronavirus-19. Ebola Screen: No symptoms or risks identified at this time. Initial Sepsis Screen: Does the patient meet any 2 criteria? No. Patient's initial sepsis screen is negative. Does the patient have a suspected source of infection? No. Patient's initial sepsis screen is negative. Risk Assessment: Do you want to hurt yourself or someone else? Patient reports no desire to harm self or others. Onset of symptoms was January 2022. 16:55 Method Of Arrival: Ambulatory aa5 16:55 Acuity: DEVAN 3 aa5 Historical: - Allergies: 16:56 No Known Allergies; aa5 - PMHx: 16:57 Kidney stone; aa5 - PSHx: 16:57 None; aa5 - Immunization history:: Adult Immunizations unknown. - Social history:: Smoking status: Patient denies any tobacco usage or history of. Vital Signs: 16:55 BP 131 / 84; Pulse 89; Resp 16 S; Temp 98.4(TE); Pulse Ox 99% on R/A; Weight 127.01 kg aa5 (R); Height 6 ft. 3 in. (190.50 cm) (R); 16:55 Body Mass Index 35.00 (127.01 kg, 190.50 cm) aa5 ED Course: 16:49 Patient arrived in ED. as 16:55 Shy Gunter FNP-C [facility]. kb 16:55 Rachel Perez MD is Attending Physician. kb 16:55 Arm band placed on. aa5 16:56 Triage completed. aa5 17:05 Initial lab(s) drawn, by me, sent to lab. Inserted saline lock: 20 gauge in right aa5 antecubital area, using aseptic technique. Blood collected. 17:26 CT Stone Protocol In Process Unspecified. EDMS 17:59 Renae Saravia, RN is Primary Nurse. iw 18:34 Kyle Hester MD is Referral Physician. kb Administered Medications: 17:08 Drug: Ketorolac 30 mg Route: IVP; Site: right antecubital; aa5 17:50 Follow up: Response: No adverse reaction iw 18:17 Drug: Flomax (tamsulosin) 0.4 mg Route: PO; iw 19:00 Follow up: Response: No adverse reaction iw 18:18 Drug: Magnesium Sulfate 1 grams Route: IVPB; Infused Over: 1 hrs; Site: right iw antecubital; 19:00 Follow up: IV Status: Completed infusion iw Outcome: 18:33 Discharge ordered by . kb 19:02 Discharged to home ambulatory. iw 19:02 Condition: good 19:02 Discharge instructions given to patient, Instructed on discharge instructions, follow up and referral plans. medication usage, Demonstrated understanding of instructions, follow-up care, medications, Prescriptions given X 4. 19:02 Patient left the ED. iw Signatures: Dispatcher [employer] EDSD Shy Gunter, PAINT DIPPER-C PAINT DIPPER-Melissa Silva as Renae Saravia, RN RN iw Erika Pratt RN RN aa5
--- NOTE | 2022-02-04 18:33 | EDPHYS ---
Physician Documentation [facility] Name: Xavi Jarrell Age: 26 yrs Sex: Male : 1995 Arrival Date: 02/04/2022 Time: 16:49 Bed 19 Private MD: ED Physician Rachel Perez HPI: 02/04 18:32 This 26 yrs old Male presents to ER via Ambulatory with complaints of Groin kb Pain, Abdominal Pain. 18:32 The patient complains of pain in the left flank. The pain radiates to the left lower kb quadrant. Onset: The symptoms/episode began/occurred 2 day(s) ago. Modifying factors: The symptoms are alleviated by nothing. the symptoms are aggravated by nothing. Associated signs and symptoms: Pertinent positives: dysuria, Pertinent negatives: diarrhea, dizziness, fever, urinary frequency, headache, hematuria, nausea, pain radiating to the lower extremities, vomiting. Severity of pain: At its worst the pain was moderate in the emergency department the pain is unchanged. The patient has experienced a previous episode. The patient has not recently seen a physician. Historical: - Allergies: 16:56 No Known Allergies; aa5 - PMHx: 16:57 Kidney stone; aa5 - PSHx: 16:57 None; aa5 - Immunization history:: Adult Immunizations unknown. - Social history:: Smoking status: Patient denies any tobacco usage or history of. ROS: 18:31 Constitutional: Negative for fever, chills, and weight loss. kb 18:31 Back: Positive for flank pain, on the left. 18:31 : Positive for pain with urination. 18:31 All other systems are negative. Exam: 18:31 Constitutional: This is a well developed, well nourished patient who is awake, alert, kb and in no acute distress. Head/Face: Normocephalic, atraumatic. ENT: Moist Mucous membranes Cardiovascular: Regular rate and rhythm with a normal S1 and S2. No gallops, murmurs, or rubs. No pulse deficits. Respiratory: Respirations even and unlabored. No increased work of breathing. Talking in full sentences Skin: Warm, dry with normal turgor. Normal color. MS/ Extremity: Pulses equal, no cyanosis. Neurovascular intact. Full, normal range of motion. Neuro: Awake and alert, GCS 15, oriented to person, place, time, and situation. Moves all extremities. Normal gait. Psych: Awake, alert, with orientation to person, place and time. Behavior, mood, and affect are within normal limits. 18:31 Abdomen/GI: Inspection: abdomen appears normal, Bowel sounds: normal, in all quadrants, Palpation: soft, in all quadrants, mild abdominal tenderness, in the left lower quadrant. 18:31 Back: CVA tenderness, that is mild, that is moderate, is noted on the left. Vital Signs: 16:55 BP 131 / 84; Pulse 89; Resp 16 S; Temp 98.4(TE); Pulse Ox 99% on R/A; Weight 127.01 kg aa5 (R); Height 6 ft. 3 in. (190.50 cm) (R); 16:55 Body Mass Index 35.00 (127.01 kg, 190.50 cm) aa5 MDM: 16:57 Patient medically screened. kb 18:31 Data reviewed: vital signs, nurses notes. Data interpreted: Pulse oximetry: on room air kb is 99 %. Interpretation: normal. Counseling: I had a detailed discussion with the patient and/or guardian regarding: the historical points, exam findings, and any diagnostic results supporting the discharge/admit diagnosis, lab results, radiology results, the need for outpatient follow up, a urologist, to return to the emergency department if symptoms worsen or persist or if there are any questions or concerns that arise at home. ED course: Pain is better after medication. Will discharge home to follow up with urology. Return precautions given. Pt in agreement with plan of care. 02/04 16:58 Order name: CBC with Diff; Complete Time: 17:33 kb 02/04 16:58 Order name: Basic Metabolic Panel; Complete Time: 17:27 kb 02/04 16:58 Order name: CT Stone Protocol; Complete Time: 17:39 kb 02/04 16:58 Order name: Urine Microscopic Only; Complete Time: 18:34 kb 02/04 18:05 Order name: Urine Dipstick-Ancillary; Complete Time: 18:06 EDMN 02/04 18:31 Order name: Urine Culture EDMN 02/04 16:58 Order name: IV Start; Complete Time: 17:05 kb 02/04 16:58 Order name: Urine Dipstick-Ancillary (obtain specimen); Complete Time: 18:18 kb Administered Medications: 17:08 Drug: Ketorolac 30 mg Route: IVP; Site: right antecubital; aa5 17:50 Follow up: Response: No adverse reaction iw 18:17 Drug: Flomax (tamsulosin) 0.4 mg Route: PO; iw 19:00 Follow up: Response: No adverse reaction iw 18:18 Drug: Magnesium Sulfate 1 grams Route: IVPB; Infused Over: 1 hrs; Site: right iw antecubital; 19:00 Follow up: IV Status: Completed infusion iw Disposition: 02/05 08:10 Co-signature as Attending Physician, Rachel Perez MD I agree with the assessment ma2 and plan of care. Disposition Summary: 02/04/22 18:33 Discharge Ordered Location: Home kb Condition: Stable kb Diagnosis - Calculus of kidney with calculus of ureter kb Followup: kb - With: Emergency Department - When: As needed - Reason: Worsening of condition Followup: kb - With: Private Physician - When: 2 - 3 days - Reason: Recheck today's complaints, Continuance of care, Re-evaluation by your physician Followup: kb - With: Kyle Hester MD - When: 2 - 3 days - Reason: Recheck today's complaints Discharge Instructions: - Kidney Stones, [id number] kb - Discharge Summary Sheet aa5 Forms: - Medication Reconciliation Form kb - Thank You Letter kb - Antibiotic Education kb - Prescription Opioid Use kb Prescriptions: - Flomax 0.4 mg Oral capsule - take 1 capsule by ORAL route once daily 1/2 hour following the same meal each kb day; 10 capsule; Refills: 0, Product Selection Permitted - Zofran 4 mg Oral Tablet - take 1 tablet by ORAL route every 6 hours As needed; 20 tablet; Refills: 0, kb Product Selection Permitted - Diclofenac Sodium 75 mg Oral tablet,delayed release (DR/EC) - take 1 tablet by ORAL route 2 times per day As needed; 30 tablet; Refills: 0, kb Product Selection Permitted - Augmentin 875-125 mg Oral Tablet - take 1 tablet by ORAL route every 12 hours for 7 days; 14 tablet; Refills: 0, kb Product Selection Permitted Signatures: Dispatcher [employer] Shy Enrique, FELISA-C FELISA-Renae Mora RN RN Carter Ortegari, RN RN aa5 Rachel Perez MD MD ma2
[2022-02-04 19:22] VITALS: BP 131/84; TEMP 98.4; O2SAT 99
== END 2022-02-04 19:02 | disposition home or self-care (01) ==
LOC: ER 16:48
DX: N20.2 Calculus of kidney with calculus of ureter (principal); Z87.442 Personal history of urinary calculi
CPT/HCPCS: 36415; 74176; 76377; 80048; 81003; 81015; 85025; 87086; 87088; 96365; 96375; 99284; J3475

== ENCOUNTER 2023-04-03 17:36 | Emergency (ER) | payer SELFPAY ==
[2023-04-03] MEDS ORDERED: ACETAMINOPHEN 500 MG TAB ONE (19:04)
[2023-04-03 19:08] LABS: Specific Gravity 1.017 (1.005-1.030); Urine Bacteria None Seen /HPF (<20); Urine Bilirubin NEGATIVE (Negative); Urine Blood Negative (Negative); Urine Clarity Clear (Clear); Urine Color Light-Yellow (Yellow); Urine Glucose NEGATIVE (Negative); Urine Mucus Slight /HPF (None Seen); Urine Protein TRACE (Negative); Urine RBC <5 /HPF (None Seen); Urine Urobilinogen Normal (Normal); Urine pH 6.5 (5.0-7.0)
--- NOTE | 2023-04-03 20:16 | EDPHYS ---
Physician Documentation [facility] Name: Xavi Jarrell Age: 27 yrs Sex: Male : 1995 Arrival Date: 04/03/2023 Time: 17:36 Bed 19 Private MD: ED Physician Dion Ly HPI: 04/03 17:50 This 27 yrs old Male presents to ER via Unassigned with complaints of kb Headache, Fever. 17:51 The patient presents with urinary symptoms, dysuria. Onset: The symptoms/episode kb began/occurred 4 day(s) ago. Modifying factors: The symptoms are alleviated by nothing, the symptoms are aggravated by urinating. Associated signs and symptoms: Pertinent positives: dysuria, Pertinent negatives: abdominal pain, constipation, diarrhea, fever, hematuria, nausea, vomiting. Severity of symptoms: At their worst the symptoms were moderate, in the emergency department the symptoms are unchanged. The patient has not experienced similar symptoms in the past. The patient has not recently seen a physician. Pt reports pain with urination, chills and headache since Monday. Denies cough, congestion, sore throat, n/v/d, abd pain, flank pain. Historical: - Allergies: 17:54 No Known Allergies; me1 - Home Meds: 17:54 None [Active]; me1 - PMHx: 17:54 Kidney stone; me1 - PSHx: 17:54 None; me1 - Immunization history:: Adult Immunizations up to date. - Social history:: Smoking status: Patient denies any tobacco usage or history of. ROS: 17:50 Respiratory: Negative for shortness of breath, cough, wheezing, and pleuritic chest kb pain. 17:50 Constitutional: Positive for chills. 17:50 : Positive for pain with urination. 17:50 Neuro: Positive for headache. 17:50 All other systems are negative. Exam: 17:50 Constitutional: This is a well developed, well nourished patient who is awake, alert, kb and in no acute distress. Head/Face: Normocephalic, atraumatic. ENT: Moist Mucous membranes Cardiovascular: Regular rate and rhythm with a normal S1 and S2. No gallops, murmurs, or rubs. No pulse deficits. Respiratory: Respirations even and unlabored. No increased work of breathing. Talking in full sentences Abdomen/GI: Soft, non-tender. No distention Skin: Warm, dry with normal turgor. Normal color. MS/ Extremity: Pulses equal, no cyanosis. Neurovascular intact. Full, normal range of motion. Neuro: Awake and alert, GCS 15, oriented to person, place, time, and situation. Moves all extremities. Normal gait. Vital Signs: 17:53 BP 140 / 85; Pulse 72; Resp 18; Temp 98.2; Pulse Ox 97% on R/A; Weight 102.06 kg; me1 Height 6 ft. 3 in. ; 18:55 BP 143 / 67; Pulse 73; Resp 17; Temp 98.4; Pulse Ox 99% on R/A; Pain 8/10; nj1 19:56 BP 144 / 90; Pulse 63; Resp 18; Pulse Ox 96% on R/A; nj1 21:00 BP 140 / 86; Pulse 63; Resp 18; Pulse Ox 98% ; Pain 3/10; nj1 17:53 Body Mass Index 28.12 (102.06 kg, 190.5 cm) me1 18:55 Pain Scale: Adult nj1 21:00 Pain Scale: Adult nj1 MDM: 17:41 Patient medically screened. kb 19:58 Data reviewed: vital signs, nurses notes. kb 20:01 Differential diagnosis: UTI, covid, flu, strep, viral illness. kb 20:15 Test considered but Not performed: CT: CT stone considered, but pt has no hematuria, no kb difficulty urinating, no flank pain or CVA tenderness. Counseling: I had a detailed discussion with the patient and/or guardian regarding: the historical points, exam findings, and any diagnostic results supporting the discharge/admit diagnosis, lab results, the need for outpatient follow up, a family practitioner, a urologist, to return to the emergency department if symptoms worsen or persist or if there are any questions or concerns that arise at home. 04/03 17:46 Order name: Flu; Complete Time: 19:43 kb 04/03 17:46 Order name: COVID-19 SARS RT PCR; Complete Time: 19:43 kb 04/03 17:46 Order name: Strep; Complete Time: 19:43 kb 04/03 17:46 Order name: Urinalysis w/ reflexes; Complete Time: 19:16 kb 04/03 19:23 Order name: Throat Culture EDMS 04/03 20:17 Order name: GC (Mejia/Chl) Probe URINE EDMS Administered Medications: 18:55 Drug: Acetaminophen PO 1000 mg Route: PO; nj1 19:57 Follow up: Response: No adverse reaction nj1 Disposition Summary: 04/03/23 20:15 Discharge Ordered Location: Home kb Condition: Stable kb Diagnosis - Headache kb - Dysuria kb Followup: kb - With: Emergency Department - When: As needed - Reason: Worsening of condition Followup: kb - With: Private Physician - When: 2 - 3 days - Reason: Recheck today's complaints, Continuance of care, Re-evaluation by your physician Discharge Instructions: - Discharge Summary Sheet kb - Dysuria kb - General Headache Without Cause, [id number]-[id number] kb Forms: - Medication Reconciliation Form kb - Thank You Letter kb - Antibiotic Education kb - Prescription Opioid Use kb - Patient Portal Instructions kb - Leadership Thank You Letter kb Signatures: Dispatcher [employer] EDIL Shy Gunter, MACHINE APPLICATOR CEMENTER-C MACHINE APPLICATOR CEMENTER-Amber Paz, RN RN nj1 Raiza Murrell, RN RN me1
--- NOTE | 2023-04-03 20:16 | ER ---
Nurse's Notes [facility] Name: Xavi Jarrell Age: 27 yrs Sex: Male : 1995 Arrival Date: 04/03/2023 Time: 17:36 Bed 19 Private MD: Diagnosis: Headache;Dysuria Presentation: 04/03 17:53 Chief complaint: Patient states: c/o headache, chills and pain with urination that me1 started on Monday. Coronavirus screen: Vaccine status: Patient reports receiving the 2nd dose of the covid vaccine. chills, headache, sore throat. Ebola Screen: No symptoms or risks identified at this time. Initial Sepsis Screen: Does the patient meet any 2 criteria? No. Patient's initial sepsis screen is negative. Does the patient have a suspected source of infection? No. Patient's initial sepsis screen is negative. Risk Assessment: Do you want to hurt yourself or someone else? Patient reports no desire to harm self or others. Onset of symptoms was March 31, 2023. 17:53 Method Of Arrival: Ambulatory [place] 17:53 Acuity: DEVAN 4 ms1 Triage Assessment: 18:30 Headache History: Other Headache for about a week. nj1 18:30 Pain: Pain began a week ago. ct1 18:30 Pain: Also complains of Chills. [facility] Historical: - Allergies: 17:54 No Known Allergies; me1 - Home Meds: 17:54 None [Active]; me1 - PMHx: 17:54 Kidney stone; me1 - PSHx: 17:54 None; me1 - Immunization history:: Adult Immunizations up to date. - Social history:: Smoking status: Patient denies any tobacco usage or history of. Screenin:30 [facility] ED Fall Risk Assessment (Adult) Score/Fall Risk Level 0 - 2 = Low Risk nj1 Oriented to surroundings, Maintained a safe environment, Hourly rounding (assess needs \T\ fall precautionary measures) done. Abuse screen: Denies threats or abuse. Has been threatened or abused. Nutritional screening: No deficits noted. Tuberculosis screening: No symptoms or risk factors identified. Assessment: 18:30 General: Appears in no apparent distress. comfortable, Behavior is calm, cooperative, nj1 appropriate for age. 18:30 Pain: Complains of pain in Head. Pain: Pain currently is 8 out of 10 on a pain scale. nj1 Neuro: Level of Consciousness is awake, alert, obeys commands, Oriented to person, place, time, situation. Cardiovascular: Patient's skin is warm and dry. Respiratory: Airway is patent Respiratory effort is even, unlabored. 19:57 Reassessment: Patient appears in no apparent distress at this time. Pt resting/sleeping.nj1 21:00 Reassessment: Patient appears in no apparent distress at this time. Patient and/or nj1 family updated on plan of care and expected duration. Pain level reassessed. Patient is alert, oriented x 3, equal unlabored respirations, skin warm/dry/pink. Patient states feeling better. Vital Signs: 17:53 BP 140 / 85; Pulse 72; Resp 18; Temp 98.2; Pulse Ox 97% on R/A; Weight 102.06 kg; me1 Height 6 ft. 3 in. ; 18:55 BP 143 / 67; Pulse 73; Resp 17; Temp 98.4; Pulse Ox 99% on R/A; Pain 8/10; nj1 19:56 BP 144 / 90; Pulse 63; Resp 18; Pulse Ox 96% on R/A; nj1 21:00 BP 140 / 86; Pulse 63; Resp 18; Pulse Ox 98% ; Pain 3/10; nj1 17:53 Body Mass Index 28.12 (102.06 kg, 190.5 cm) me1 18:55 Pain Scale: Adult nj1 21:00 Pain Scale: Adult ct1 ED Course: 17:40 Patient arrived in ED. mg5 17:40 [facility] Gun[facility]C [facility]. kb 17:40 Dion Ly MD is Attending Physician. kb 17:48 Raiza Murrell RN is Primary Nurse. me1 17:54 Triage completed. me1 17:54 Arm band placed on Patient placed in waiting room. ms1 18:30 Provided Education on: fall precautions, call light. nj1 18:30 Patient has correct armband on for positive identification. Bed in low position. Call [facility] light in reach. 21:00 No provider procedures requiring assistance completed. Patient did not have IV access [facility] during this emergency room visit. Administered Medications: 18:55 Drug: Acetaminophen PO 1000 mg Route: PO; nj1 19:57 Follow up: Response: No adverse reaction nj1 Medication: 21:15 VIS not applicable for this client. nj1 Outcome: 20:15 Discharge ordered by . desi 21:00 Discharged to home ambulatory. nj1 21:00 Condition: stable 21:00 Discharge instructions given to patient, Instructed on discharge instructions, follow up and referral plans. safety practices, Demonstrated understanding of instructions, follow-up care. 21:18 Patient left the ED. nj1 Signatures: Shy Gunter, FELISA-C FELISA-Amber Paz, RN RN nj1 Raiza Murrell RN RN me1 Nan De La Cruz mg5
[2023-04-03 21:36] VITALS: TEMP 98.4
[2023-04-03 21:39] VITALS: BP 140/86; O2SAT 98
== END 2023-04-03 21:18 | disposition home or self-care (01) ==
LOC: ER 17:36
DX: R51.9 Headache, unspecified (principal); R30.0 Dysuria; Z20.822 Contact with and (suspected) exposure to COVID-19
CPT/HCPCS: 81001; 87070; 87081; 87490; 87590; 87635; 87804; 99283

== ENCOUNTER 2023-07-22 09:15 | Emergency (ER) | payer SELFPAY ==
--- OUTSIDE RECORDS SUMMARY | 2023-07-22 09:18 | XMS REPORT | Continuity of Care Document ---
:1995 Author Organization [facility] t Address [address] [facility] [address] [place] [id number] Care Team Providers Name Role Phone Unavailable Unavailable Unavailable Problems This patient has no known problems. Allergies, Adverse Reactions, Alerts This patient has no known allergies or adverse reactions. Medications This patient has no known medications. Procedures This patient has no known procedures. Encounters Start End Encounter Admission Attending Care Care Encounter Source Date/Time Date/Time Type Type Clinicians Facility Department ID 2022-11-09 2022-11-09 Outpatient [facility] [id number] 10:11:08 10:11:08 [id number] F [place] Results This patient has no known results.
[2023-07-22] MEDS ORDERED: KETOROLAC 30 MG/ML INJ ONE (09:53)
[2023-07-22] MEDS ORDERED: NA CHLORIDE 0.9% 1,000 ML ONE (09:53)
--- NOTE | 2023-07-22 09:55 | RAD REPORT ---
EXAM DESCRIPTION: CT - Stone Protocol - 07/22/2023 9:46 am CLINICAL HISTORY: Flank pain. FLANK PAIN COMPARISON: <Comparisons> TECHNIQUE: Axial images were obtained without oral or IV contrast. Lack of contrast limits solid org an and vascular assessment. The [id number] spans the entirety of the system partially obscuring uppermost abdomen and lung bases. Coronal reformatted images were obtained and reviewed. All CT scans are performed using dose optimization technique as appropriate and may include automated exposure control or mA/KV adjustment according to patient size. FINDINGS: The lower lung silva are clear. Imaged portions of the liver and spleen show no suspicious findings on non-contrast imaging. The panc reas and adrenal glands are normal. No pathologic lymphadenopathy in the abdomen or pelvis. Punctate caliceal stones present mid-pole right kidney. No additional calculus or significant hydrone phrosis apparent. No bowel obstruction, free air, free fluid or abscess. Normal appendix noted.Moderate stool is presen t throughout the colon. Bold No significant bony abnormality. IMPRESSION: Punctate right nephrolithiasis. No significant hydronephrosis.
[2023-07-22 10:04] LABS: Absolute Lymphocytes (CBC) 2.8 K/uL (0.7-4.9); Hematocrit 46.4 % (39.6-49.0); Lymphocytes % 27.9 % (15.3-44.8); MCV 88.6 fL (80-100); MPV 8.4 fL (7.6-11.3); Platelets 281 thou/uL (152-406); RBC Red Blood Cell Count 5.24 M/uL (4.33-5.43)
[2023-07-22 10:16] LABS: Potassium 3.8 mEq/L (3.5-5.1)
[2023-07-22 10:26] LABS: Specific Gravity 1.019 (1.005-1.030); Urine Bacteria None Seen /HPF (<20); Urine Bilirubin NEGATIVE (Negative); Urine Blood Negative (Negative); Urine Clarity Clear (Clear); Urine Color Light-Yellow (Yellow); Urine Glucose NEGATIVE (Negative); Urine Protein 1+ (Negative); Urine RBC None Seen /HPF (None Seen); Urine Urobilinogen Normal (Normal)
--- NOTE | 2023-07-22 10:42 | EDPHYS ---
Physician Documentation [facility] Name: Xavi Jarrell Age: 27 yrs Sex: Male : 1995 Arrival Date: 07/22/2023 Time: 09:15 Bed 16 Private MD: PENELOPE Physician Dion Ly HPI: 07/22 09:25 This 27 yrs old Male presents to ER via Ambulatory with complaints of Back jh7 Pain, concern for STI. 09:25 The patient presents with pain that is acute, with no known mechanism of injury. The jh7 symptoms are located in the left low back. Onset: The symptoms/episode began/occurred 1 day(s) ago. The pain does not radiate. Associated signs and symptoms: Pertinent positives: dysuria, Pertinent negatives: abdominal pain, nausea, urinary retention, vomiting. 27-year-old male presents with left flank pain and dysuria since yesterday. The patient has been sexually active and is concerned about an STI. He also has a history of kidney stones. Denies having a PCP. Denies fever.. Historical: - Allergies: 09: No Known Allergies; hb - Home Meds: : None [Active]; hb - PMHx: : Kidney stone; hb - PSHx: : None; hb - Immunization history:: Adult Immunizations up to date. - Social history:: Smoking status: Patient denies any tobacco usage or history of. ROS: 09:25 Constitutional: Negative for fever, chills, and weight loss, Eyes: Negative for injury, jh7 pain, redness, and discharge, Neck: Negative for injury, pain, and swelling, Cardiovascular: Negative for chest pain, palpitations, and edema, Respiratory: Negative for shortness of breath, cough, wheezing, and pleuritic chest pain, Abdomen/GI: Negative for abdominal pain, nausea, vomiting, diarrhea, and constipation, MS/Extremity: Negative for injury and deformity, Skin: Negative for injury, rash, and discoloration, Neuro: Negative for headache, weakness, numbness, tingling, and seizure, :25 Back: Positive for flank pain, on the left, :25 : Positive for flank pain, burning with urination, Negative for hematuria, penile discharge, :25 All other systems are negative, Exam: 09:25 Constitutional: This is a well developed, well nourished patient who is awake, alert, jh7 and in no acute distress. Head/Face: Normocephalic, atraumatic. Neck: Trachea midline, no thyromegaly or masses palpated, and no cervical lymphadenopathy. Supple, full range of motion without nuchal rigidity, or vertebral point tenderness. No Meningismus. Cardiovascular: Regular rate and rhythm with a normal S1 and S2. No gallops, murmurs, or rubs. Normal PMI, no JVD. No pulse deficits. Respiratory: Lungs have equal breath sounds bilaterally, clear to auscultation and percussion. No rales, rhonchi or wheezes noted. No increased work of breathing, no retractions or nasal flaring. Abdomen/GI: Soft, non-tender, with normal bowel sounds. No distension or tympany. No guarding or rebound. No evidence of tenderness throughout. Skin: Warm, dry with normal turgor. Normal color with no rashes, no lesions, and no evidence of cellulitis. MS/ Extremity: Pulses equal, no cyanosis. Neurovascular intact. Full, normal range of motion. Neuro: Awake and alert, GCS 15, oriented to person, place, time, and situation. Motor strength 5/5 in all extremities. Sensory grossly intact. Normal gait. 09:25 : CVA tenderness, on the left, Vital Signs: 09:25 BP 152 / 92; Pulse 79; Resp 16; Temp 97.8(TE); Pulse Ox 98% on R/A; Pain 5/10; hb 09:25 Pain Scale: Adult hb MDM: 09:17 Patient medically screened. [facility] 11:10 Differential diagnosis: Pyelonephritis Ureterolithiasis UTI, STI. Data reviewed: vital [facility] signs, nurses notes, lab test result(s), radiologic studies, CT scan. I considered the following discharge prescriptions or medication management in the emergency department Medications were administered in the Emergency Department. See MAR. Counseling: I had a detailed discussion with the patient and/or guardian regarding the historical points, exam findings, and any diagnostic results supporting the discharge/admit diagnosis, to return to the emergency department if symptoms worsen or persist or if there are any questions or concerns that arise at home. Response to treatment: the patient's symptoms have markedly improved after treatment. Special discussion: We will treat for STI due to recent unprotected sexual activity. Advised the patient to follow-up with his PCP for STI testing.. 07/22 09:30 Order name: BMP; Complete Time: 10:30 [facility] 07/22 09:30 Order name: CBC with Diff; Complete Time: 10:30 [facility] 07/22 09:30 Order name: Urinalysis W/Microscopic; Complete Time: 10:30 [facility] 07/22 09:30 Order name: CT Stone Protocol; Complete Time: 09:59 [facility] Administered Medications: 09:58 Drug: NS 0.9% IV 1000 ml IV at 1 bolus Per protocol; 1000 mL bolus Route: IV; Rate: 1 kc6 bolus; Site: left antecubital; 11:04 Follow up: Response: No adverse reaction; IV Status: Completed infusion; IV Intake: kc6 1000ml 09:58 Drug: Ketorolac IVP 30 mg IVP once Route: IVP; Site: left antecubital; kc6 11:04 Follow up: Response: No adverse reaction; Pain is decreased 6 11:04 Drug: Rocephin IV 1 grams IV at 1 calculated rate once; Given slow IV push per pharmacy kc6 instructions Route: IV; Rate: 1 calculated rate; Site: left antecubital; Disposition Summary: 07/22/23 10:41 Discharge Ordered Notes: Location: Home [facility] Problem: new [facility] Symptoms: are unchanged [facility] Condition: Stable [facility] Diagnosis - Other urethritis [facility] - Contact with and (suspected) exposure to infections with a predominantly sexual [facility] mode of transmission Followup: [facility] - With: Private Physician - When: 2 - 3 days - Reason: Recheck today's complaints Discharge Instructions: - Discharge Summary Sheet [facility] - Urethritis, Adult [facility] - Safe Sex [facility] - Preventing Sexually Transmitted Infections, Adult [facility] Forms: - Medication Reconciliation Form [facility] - Thank You Letter [facility] - Antibiotic Education [facility] - Patient Portal Instructions [facility] - Leadership Thank You Letter [facility] Prescriptions: - Doxycycline Hyclate 100 mg Oral tablet - take 1 tablet ORAL route every 12 hours for 7 days; 14 tablet; Refills: 0, jh7 Product Selection Permitted Signatures: Dispatcher [employer] Patti Lechuga RN RN Suly Whitt FNP [employer] INST[employer]ER [facility] Ca, Martha, RN RN kc6
--- NOTE | 2023-07-22 10:42 | ER ---
Nurse's Notes [facility] Name: Xavi Jarrell Age: 27 yrs Sex: Male : 1995 Arrival Date: 07/22/2023 Time: 09:15 Bed 16 Private MD: Diagnosis: Other urethritis;Contact with and (suspected) exposure to infections with a predominantly sexual mode of transmission Presentation: 07/22 09:25 Chief complaint: Patient states: Left flank and urinary frequency x 2 days. Concerned hb about having an STD. Coronavirus screen: At this time, the client does not indicate any symptoms associated with coronavirus-19. Ebola Screen: No symptoms or risks identified at this time. Initial Sepsis Screen: Does the patient meet any 2 criteria? No. Patient's initial sepsis screen is negative. Does the patient have a suspected source of infection? No. Patient's initial sepsis screen is negative. Risk Assessment: Do you want to hurt yourself or someone else? Patient reports no desire to harm self or others. Onset of symptoms was July 21, 2023. 09:25 Method Of Arrival: Ambulatory 09:25 Acuity: DEVAN 3 hb Historical: - Allergies: 09:26 No Known Allergies; hb - Home Meds: 09:26 None [Active]; hb - PMHx: 09:26 Kidney stone; hb - PSHx: 09:26 None; hb - Immunization history:: Adult Immunizations up to date. - Social history:: Smoking status: Patient denies any tobacco usage or history of. Screenin:58 [facility] ED Fall Risk Assessment (Adult) History of falling in the last 3 months, kc6 including since admission No falls in past 3 months (0 pts) Confusion or Disorientation No (0 pts) Intoxicated or Sedated No (0 pts) Impaired Gait No (0 pts) Mobility Assist Device Used No (0 pt) Altered Elimination No (0 pt) Score/Fall Risk Level 0 - 2 = Low Risk. Abuse screen: Denies threats or abuse. Denies injuries from another. Nutritional screening: No deficits noted. Tuberculosis screening: No symptoms or risk factors identified. Assessment: 09:59 General: Appears in no apparent distress. uncomfortable, Behavior is calm, cooperative, kc6 appropriate for age. Pain: Complains of pain in back Pain currently is 9 out of 10 on a pain scale. Neuro: Level of Consciousness is awake, alert, obeys commands, Oriented to person, place, time, situation, Appropriate for age. Cardiovascular: Capillary refill < 3 seconds. Respiratory: Airway is patent Trachea midline Respiratory effort is even, unlabored, Respiratory pattern is regular, symmetrical. GI: No signs and/or symptoms were reported involving the gastrointestinal system. : Urine is clear. EENT: No signs and/or symptoms were reported regarding the EENT system. Derm: No signs and/or symptoms reported regarding the dermatologic system. Skin is intact, is healthy with good turgor, Skin is pink, warm \T\ dry. Musculoskeletal: No signs and/or symptoms reported regarding the musculoskeletal system. Circulation, motion, and sensation intact. Capillary refill < 3 seconds, Range of motion: intact in all extremities. 10:59 Reassessment: Patient appears in no apparent distress at this time. No changes from kc6 previously documented assessment. Patient and/or family updated on plan of care and expected duration. Pain level reassessed. Patient is alert, oriented x 3, equal unlabored respirations, skin warm/dry/pink. Vital Signs: 09:25 BP 152 / 92; Pulse 79; Resp 16; Temp 97.8(TE); Pulse Ox 98% on R/A; Pain 5/10; hb 09:25 Pain Scale: Adult hb ED Course: 09:17 Patient arrived in ED. rg4 09:17 Suly Whitt FNP [facility]. jh7 09:17 Dion Ly MD is Attending Physician. jh7 09:26 Triage completed. hb 09:26 Arm band placed on. hb 09:28 Martha Ca, RN is Primary Nurse. kc6 09:42 CBC with Diff Sent. bc6 09:42 BMP Sent. bc6 09:42 Urinalysis W/Microscopic Sent. bc6 09:42 Inserted saline lock: 20 gauge in left antecubital area, using aseptic technique. Blood bc6 collected. 09:47 CT Stone Protocol In Process Unspecified. EDMS 09:58 Patient has correct armband on for positive identification. Bed in low position. Call kc6 light in reach. Side rails up X 1. Client placed on continuous cardiac and pulse oximetry monitoring. NIBP monitoring applied. 09:58 Patient maintains SpO2 saturation greater than 95% on room air. kc6 11:04 No provider procedures requiring assistance completed. IV discontinued, intact, kc6 bleeding controlled, No redness/swelling at site. Pressure dressing applied. Administered Medications: 09:58 Drug: NS 0.9% IV 1000 ml IV at 1 bolus Per protocol; 1000 mL bolus Route: IV; Rate: 1 kc6 bolus; Site: left antecubital; 11:04 Follow up: Response: No adverse reaction; IV Status: Completed infusion; IV Intake: kc6 1000ml 09:58 Drug: Ketorolac IVP 30 mg IVP once Route: IVP; Site: left antecubital; kc6 11:04 Follow up: Response: No adverse reaction; Pain is decreased kc6 11:04 Drug: Rocephin IV 1 grams IV at 1 calculated rate once; Given slow IV push per pharmacy kc6 instructions Route: IV; Rate: 1 calculated rate; Site: left antecubital; Medication: 11:05 VIS not applicable for this client. kc6 Intake: 11:04 IV: 1000ml; Total: 1000ml. kc6 Outcome: 10:41 Discharge ordered by . rickey 11:05 Discharged to home ambulatory, kc6 11:05 Condition: improved 11:05 Discharge instructions given to patient, Instructed on discharge instructions, follow up and referral plans. medication usage, Demonstrated understanding of instructions, follow-up care, medications, Prescriptions given X 1, 11:05 Patient left the ED. kc6 Signatures: Dispatcher [employer] EDMS Patti Box RN Andreia Witt rg4 Suly Whitt, DE ICER DE ICER Martha Venegas RN RN kc6 Lala Grossman 6
[2023-07-22] MEDS ORDERED: CEFTRIAXONE 1000 MG/VIAL ONE (10:59)
[2023-07-22 11:19] VITALS: BP 152/92; TEMP 97.8; O2SAT 98
== END 2023-07-22 11:05 | disposition home or self-care (01) ==
LOC: ER 09:15
DX: N34.2 Other urethritis (principal); Z20.2 Contact with and (suspected) exposure to infections with a predominantly sexual mode of transmission
CPT/HCPCS: 36415; 74176; 76377; 80048; 81001; 85025; 96361; 96374; 96375; 99285; J0696; J7030

== ENCOUNTER → 2023-08-16 | Emergency (ER) | payer SELFPAY ==
[~2023-08-16] MED LIST: ACETAMINOPHEN 500 MG TAB ONE; IBUPROFEN 400 MG TAB ONE; PROMETHAZINE 25 MG TABLET ONE; guaiFENesin 100 MG/5 ML UCUP ONE
--- OUTSIDE RECORDS SUMMARY | 2023-08-16 02:31 | XMS REPORT | Continuity of Care Document ---
Author Name Unknown Address [address] [place] [address] th[address] Address [address] [place] [address] [address] [place] [address] Care Team Providers Care Plant Engineer Name Role Phone Unavailable Unavailable Unavailable Encounters Start Date/Time End Date/Time Encounter Type Admission Type Attending Clinicians Care Facility Care Department Encounter ID Source 2022-11-09 10:11:08 2022-11-09 10:11:08 Outpatient [facility] [id number] Brigido Anderson
--- NOTE | 2023-08-16 04:27 | EDPHYS ---
Physician Documentation [facility] Name: Xavi Jarrell Age: 27 yrs Sex: Male : 1995 Arrival Date: 08/16/2023 Time: 02:28 Bed 17 Private MD: ED Physician Gavino Mckeon HPI: 08/16 02:48 This 27 yrs old Male presents to ER via Unassigned with complaints of Flu sp4 Symptoms. 04:31 27-year-old male presents with 1 day of cough congestion body aches fever headache sore sp4 throat malaise fatigue. . Historical: - Allergies: 02:50 No Known Allergies; vc1 - Home Meds: 02:50 None [Active]; vc1 - PMHx: 02:50 Kidney stone; vc1 - PSHx: 02:50 None; vc1 - Immunization history:: Client reports receiving the 2nd dose of the Covid vaccine, Flu vaccine is not up to date. - Social history:: Smoking status: Patient denies any tobacco usage or history of. - Family history:: not pertinent. ROS: 04:31 Constitutional: Positive subjective fever, positive chills, positive malaise, positive sp4 fatigue, positive cough, positive sore throat, positive congestion Eyes: Negative for injury, pain, redness, and discharge, ENT: Negative for injury, pain, and discharge, 04:31 All other systems are negative, Exam: 04:31 Constitutional: This is a well developed, well nourished patient who is awake, alert, sp4 and in no acute distress. Head/Face: Normocephalic, atraumatic. Eyes: Pupils equal round and reactive to light, extra-ocular motions intact. Lids and lashes normal. Conjunctiva and sclera are not injected. Cornea within normal limits. Periorbital areas with no swelling, redness, or edema. ENT: Nares patent. No nasal discharge, no septal abnormalities noted. Tympanic membranes are normal and external auditory canals are clear. Oropharynx with no redness, swelling, or masses, exudates, or evidence of obstruction, uvula midline. Mucous membranes moist. Neck: Trachea midline, no thyromegaly or masses palpated, and no cervical lymphadenopathy. Supple, full range of motion without nuchal rigidity, or vertebral point tenderness. Chest/axilla: Normal chest wall appearance and motion. Nontender with no deformity. No lesions are appreciated. Cardiovascular: Regular rate and rhythm with a normal S1 and S2. No gallops, murmurs, or rubs. Normal PMI, no JVD. No pulse deficits. Respiratory: Lungs have equal breath sounds bilaterally, clear to auscultation and percussion. No rales, rhonchi or wheezes noted. No increased work of breathing, no retractions or nasal flaring. Abdomen/GI: Soft, non-tender, with normal bowel sounds. No distension or tympany. No guarding or rebound. No evidence of tenderness throughout. Back: No spinal tenderness. No costovertebral tenderness. Skin: Warm, dry with normal turgor. Normal color with no rashes, no lesions, and no evidence of cellulitis. MS/ Extremity: Pulses equal, no cyanosis. Neurovascular intact. Full, normal range of motion. Neuro: Awake and alert, GCS 15, oriented to person, place, time, and situation. Cranial nerves II-XII grossly intact. Motor strength 5/5 in all extremities. Sensory grossly intact. Psych: Awake, alert, with orientation to person, place and time. Behavior, mood, and affect are within normal limits Vital Signs: 02:48 BP 133 / 78; Pulse 67; Resp 17; Temp 98.2; Pulse Ox 97% ; Weight 104.33 kg; Height 6 vc1 ft. 3 in. ; 03:00 BP 129 / 80; Pulse 65; Resp 17; Pulse Ox 98% ; vc1 04:00 BP 133 / 78; Pulse 51; Resp 18; Pulse Ox 99% ; vc1 02:48 Body Mass Index 28.75 (104.33 kg, 190.5 cm) vc1 MDM: 02:49 Patient medically screened. sp4 04:31 Differential Diagnosis altered mental status, sepsis, flu. Data reviewed: vital signs, sp4 nurses notes, lab test result(s), Flu: negative. ED course: Negative COVID-19 today and negative influenza. Will treat for common cold type symptoms. Will provide a work release for the next 3 days . . 08/16 02:49 Order name: COVID-19 SARS RT PCR; Complete Time: 04:12 sp4 08/16 02:49 Order name: Influenza Screen (a \T\ B); Complete Time: 04:12 sp4 Administered Medications: 03:15 Drug: Ibuprofen PO 800 mg PO once Route: PO; vc1 03:15 Drug: Acetaminophen PO 1000 mg PO once Route: PO; vc1 03:15 Drug: Dextromethorphan-Guaifenesin PO Liquid 10 mg-100 mg/5 mL 10 ml PO once Route: PO; vc1 03:15 Drug: Promethazine PO 25 mg PO once Route: PO; vc1 Disposition Summary: 08/16/23 04:26 Discharge Ordered Problem: new sp4 Symptoms: have improved sp4 Condition: Stable sp4 Diagnosis - Other specified viral diseases sp4 - Acute systemic viral illness, acute, cold, acute febrile illness sp4 Followup: sp4 - With: Private Physician - When: 7 - 10 days - Reason: Recheck today's complaints Discharge Instructions: - Discharge Summary Sheet sp4 - Viral Illness, Adult sp4 Forms: - Work release form kl Prescriptions: - dextromethorphan-guaifenesin 10-200 mg Oral capsule - take 2 capsule ORAL route every 6 hours PRN cough; 60 capsule; Refills: 0, sp4 Product Selection Permitted - Ibuprofen 800 mg Oral tablet - take 1 tablet ORAL route every 6 hours As needed PRN fever or body aches; 30 sp4 tablet; Refills: 0, Product Selection Permitted - ondansetron 8 mg Oral Tablet,disintegrating - take 1 tablet ORAL route every 8 hours PRN nausea; 30 tablet; Refills: 0, sp4 Product Selection Permitted Signatures: Dispatcher [employer] Mary Nicole RN RN vc1 Gavino Mckeon MD MD sp4
--- NOTE | 2023-08-16 04:27 | ER ---
Nurse's Notes [facility] [place] [place] Name: Xavi Jarrell Age: 27 yrs Sex: Male : 1995 Arrival Date: 08/16/2023 Time: 02:28 Bed 17 Private MD: Diagnosis: Other specified viral diseases;Acute systemic viral illness, acute, cold, acute febrile illness Presentation: 08/16 02:48 Chief complaint: Patient states: I have had a bad cough, headache and some weakness vc1 since . Coronavirus screen: Vaccine status: Patient reports receiving the 2nd dose of the covid vaccine. Client denies travel out of the [place] in the last 14 days. cough unrelated to allergies, headache, Client presents with at least one sign or symptom that may indicate coronavirus-19. Ebola Screen: Patient negative for fever greater than or equal to 101.5 degrees Fahrenheit, and additional compatible Ebola Virus Disease symptoms Patient denies exposure to infectious person. Patient denies travel to an Ebola-affected area in the 21 days before illness onset. No symptoms or risks identified at this time. Initial Sepsis Screen: Does the patient meet any 2 criteria? No. Patient's initial sepsis screen is negative. Does the patient have a suspected source of infection? No. Patient's initial sepsis screen is negative. Risk Assessment: Do you want to hurt yourself or someone else? Patient reports no desire to harm self or others. Onset of symptoms was August 14, 2023. 02:48 Method Of Arrival: Ambulatory vc1 02:48 Acuity: DEVAN 4 vc1 Triage Assessment: 02:50 General: Appears in no apparent distress. comfortable, Behavior is calm, cooperative, vc1 appropriate for age. Pain: Complains of pain in headache Pain does not radiate. Also complains of cough, weakness. EENT: No deficits noted. No signs and/or symptoms were reported regarding the EENT system. Neuro: Level of Consciousness is awake, alert, obeys commands, Oriented to person, place, time, situation, Appropriate for age Reports weakness. Neuro: Reports headache. Cardiovascular: No deficits noted. Respiratory: Reports cough that is Airway is patent Respiratory effort is even, unlabored, Respiratory pattern is regular, symmetrical. GI: No deficits noted. No signs and/or symptoms were reported involving the gastrointestinal system. : No deficits noted. No signs and/or symptoms were reported regarding the genitourinary system. Derm: No deficits noted. No signs and/or symptoms reported regarding the dermatologic system. Musculoskeletal: No deficits noted. No signs and/or symptoms reported regarding the musculoskeletal system. Historical: - Allergies: 02:50 No Known Allergies; vc1 - Home Meds: 02:50 None [Active]; vc1 - PMHx: 02:50 Kidney stone; vc1 - PSHx: 02:50 None; vc1 - Immunization history:: Client reports receiving the 2nd dose of the Covid vaccine, Flu vaccine is not up to date. - Social history:: Smoking status: Patient denies any tobacco usage or history of. - Family history:: not pertinent. Screenin:[address] [facility] ED Fall Risk Assessment (Adult) History of falling in the last 3 months, vc1 including since admission No falls in past 3 months (0 pts) Confusion or Disorientation No (0 pts) Intoxicated or Sedated No (0 pts) Impaired Gait No (0 pts) Mobility Assist Device Used No (0 pt) Altered Elimination No (0 pt) Score/Fall Risk Level 0 - 2 = Low Risk Oriented to surroundings, Maintained a safe environment, Educated pt \T\ family on fall prevention, incl call for assistance when getting out of bed. Abuse screen: Denies threats or abuse. Nutritional screening: No deficits noted. Tuberculosis screening: No symptoms or risk factors identified. Assessment: 04:35 Reassessment: Patient and/or family updated on plan of care and expected duration. Pain vc1 level reassessed. Patient is alert, oriented x 3, equal unlabored respirations, skin warm/dry/pink. Patient states feeling better. Patient states symptoms have improved. Vital Signs: 02:48 BP 133 / 78; Pulse 67; Resp 17; Temp 98.2; Pulse Ox 97% ; Weight 104.33 kg; Height 6 vc1 ft. 3 in. ; 03:00 BP 129 / 80; Pulse 65; Resp 17; Pulse Ox 98% ; vc1 04:00 BP 133 / 78; Pulse 51; Resp 18; Pulse Ox 99% ; vc1 02:48 Body Mass Index 28.75 (104.33 kg, 190.5 cm) vc1 ED Course: 02:39 Patient arrived in ED. gm2 02:48 Gavino Mckeon MD is Attending Physician. sp4 02:48 Mary Anderson RN is Primary Nurse. vc1 02:50 Triage completed. vc1 02:50 Arm band placed on right wrist. vc1 02:52 Patient has correct armband on for positive identification. Bed in low position. Pulse vc1 ox on. NIBP on. 04:37 No provider procedures requiring assistance completed. Patient did not have IV access vc1 during this emergency room visit. 04:38 Provided Education on: medication usage/dose. vc1 Administered Medications: 03:15 Drug: Ibuprofen PO 800 mg PO once Route: PO; vc1 03:15 Drug: Acetaminophen PO 1000 mg PO once Route: PO; vc1 03:15 Drug: Dextromethorphan-Guaifenesin PO Liquid 10 mg-100 mg/5 mL 10 ml PO once Route: PO; vc1 03:15 Drug: Promethazine PO 25 mg PO once Route: PO; vc1 Medication: 02:52 VIS not applicable for this client. vc1 Outcome: 04:26 Discharge ordered by . sp4 04:38 Discharged to home ambulatory, vc1 04:38 Condition: good 04:38 Discharge instructions given to patient, Instructed on discharge instructions, follow up and referral plans. medication usage, Demonstrated understanding of instructions, follow-up care, medications, Prescriptions given X 3, 04:39 Patient left the ED. vc1 Signatures: Mary Anderson RN RN vc1 Gavino Mckeon MD MD sp4 Evelin Alvarez 2
[2023-08-16 08:45] VITALS: BP 133/78; TEMP 98.2; O2SAT 99
== END ==
LOC: ER 02:28
DX: J00 Acute nasopharyngitis [common cold] (principal); B33.8 Other specified viral diseases; Z11.52 Encounter for screening for COVID-19
CPT/HCPCS: 87635; 87804; 99284; Q0169

== ENCOUNTER 2024-08-26 23:03 | Emergency (ER) | payer SELFPAY ==
--- OUTSIDE RECORDS SUMMARY | 2024-08-26 23:05 | XMS REPORT | Continuity of Care Document ---
Author Name Unknown Address [address] [place] [address] [facility] Address [address] [place] [address] [address] [place] [address] Care Team Providers Care Polymerization Helper Name Role Phone Unavailable Unavailable Unavailable Encounters Start Date/Time End Date/Time Encounter Type Admission Type Attending Clinicians Care Facility Care Department Encounter ID Source 2022-11-09 10:11:08 2022-11-09 10:11:08 Outpatient [facility] [id number] Brigido Anderson
--- NOTE | 2024-08-26 23:29 | ER ---
Nurse's Notes [facility] Name: Xavi Jarrell Age: 28 yrs Sex: Male : 1995 Arrival Date: 08/26/2024 Time: 23:03 Bed Waiting Private MD: Diagnosis: Presentation: 08/26 23:21 Chief complaint: Patient states: I have stomach pain when I lay down or sit down. bm8 Coronavirus screen: At this time, the client does not indicate any symptoms associated with coronavirus-19. Ebola Screen: Patient negative for fever greater than or equal to 101.5 degrees Fahrenheit, and additional compatible Ebola Virus Disease symptoms Patient denies exposure to infectious person. Patient denies travel to an Ebola-affected area in the 21 days before illness onset. No symptoms or risks identified at this time. Initial Sepsis Screen: Does the patient meet any 2 criteria? No. Patient's initial sepsis screen is negative. Does the patient have a suspected source of infection? No. Patient's initial sepsis screen is negative. Risk Assessment: Do you want to hurt yourself or someone else? Patient reports no desire to harm self or others. Onset of symptoms was August 25, 2024 at 18:00. 23:21 Method Of Arrival: Ambulatory bm8 23:21 Acuity: DEVAN 3 bm8 Triage Assessment: 23:24 General: Appears in no apparent distress. comfortable, Behavior is calm, cooperative, bm8 appropriate for age. Pain: Complains of pain in right upper quadrant, left upper quadrant, right lower quadrant and left lower quadrant Pain currently is 8 out of 10 on a pain scale. GI: Abdomen is flat, non-distended, Bowel sounds present X 4 quads. Abdomen is tender to palpation in umbilical area and right lower quadrant Reports lower abdominal pain, upper abdominal pain, Pain is 8 out of 10 on a pain scale. Historical: - Allergies: 23:24 No Known Allergies; bm8 - Home Meds: 23:24 None [Active]; bm8 - PMHx: 23:24 Kidney stone; bm8 - PSHx: 23:24 None; bm8 - Immunization history:: Adult Immunizations up to date. - Infectious Disease History:: Denies. - Social history:: Smoking status: Patient denies any tobacco usage or history of. Screenin:27 [facility] ED Fall Risk Assessment (Adult) History of falling in the last 3 months, bm8 including since admission No falls in past 3 months (0 pts) Confusion or Disorientation No (0 pts) Intoxicated or Sedated No (0 pts) Impaired Gait No (0 pts) Mobility Assist Device Used No (0 pt) Altered Elimination No (0 pt) Score/Fall Risk Level 0 - 2 = Low Risk Oriented to surroundings, Maintained a safe environment, Educated pt \T\ family on fall prevention, incl call for assistance when getting out of bed, Assessed \T\ reinforced patient's understanding of fall precautions, Hourly rounding (assess needs \T\ fall precautionary measures) done, Used ambulatory aids as needed (educated on \T\ assisted with), Used gait belt as appropriate. Abuse screen: Denies threats or abuse. Nutritional screening: No deficits noted. Tuberculosis screening: No symptoms or risk factors identified. Assessment: 23:27 Reassessment: Pt left ED prior to being roomed. bm8 Vital Signs: 23:21 BP 136 / 88; Pulse 65; Resp 17; Temp 98.5; Pulse Ox 99% ; Weight 117.93 kg; Height 6 bm8 ft. 3 in. ; Pain 8/10; 23:21 Body Mass Index 32.50 (117.93 kg, 190.5 cm) bm8 23:21 Pain Scale: Adult bm8 [place] Coma Score: 23:27 Eye Response: spontaneous(4). Motor Response: obeys commands(6). Verbal Response: bm8 oriented(5). Total: 15. ED Course: 23:05 Patient arrived in ED. jj6 23:09 En Durant MD is Attending Physician. rt 23:24 Triage completed. bm8 23:24 Arm band placed on right wrist. bm8 23:27 Patient has correct armband on for positive identification. Call light in reach. Side bm8 rails up X 1. 23:27 Provided Education on: none provided pt eloped. bm8 23:27 No provider procedures requiring assistance completed. Patient did not have IV access bm8 during this emergency room visit. Administered Medications: No medications were administered Medication: 23:27 VIS not applicable for this client. bm8 Outcome: 23:27 Eloped from waiting room, before seeing physician bm8 23:27 Condition: stable 23:27 Discharge instructions given to no instructions given, pt eloped 23:29 Patient left the ED. bm8 23:35 Patient left the ED. lg3 Signatures: Ritika Jones, RN RN lg3 Suly Osorioj6 En Durant MD MD rt eJramie Graham, RN RN bm8
[2024-08-26 23:34] VITALS: BP 136/88; TEMP 98.5; O2SAT 99
== END 2024-08-26 23:35 | disposition left against medical advice (07) ==
LOC: ER 23:03
DX: R10.9 Unspecified abdominal pain (principal); Z53.21 Procedure and treatment not carried out due to patient leaving prior to being seen by health care provider
CPT/HCPCS: 99282

== ENCOUNTER 2025-01-04 00:21 | Emergency (ER) | payer SELFPAY ==
--- OUTSIDE RECORDS SUMMARY | 2025-01-04 00:25 | XMS REPORT | Continuity of Care Document ---
Author Name Unknown Address [address] [place] [address] Organization [facility] [place] Address [address] [place] [address] Care Team Providers Care Medical Affairs Leader Name Role Phone Pcp, Patient Does Not Have A Primary Care Physic thea OLIVIA YODER Attending Clinician Unavailable OLIVIA YODER Attending Clinician Unavailable Olivia [place] Attending Clinician OLIVIA YODER Admitting Clinician Unavailable Allergies, Adverse Reactions, Alerts Allergy Name Allergy Type Status Severity Reaction(s) Onset Date Inactive Date Treating Clinician Comments Source NO KNOWN ALLERGIE S Drug Class Active [facility] Social History Social Habit Start Date Stop Date Quantity Comments Source Sexual orientation [facility] Sex assigned at 1995 00:00:00 1995 00:00:00 [facility] Smoking Status Start Date Stop Date Source Tobacco smoking consumption unknown [facility] Medications Ordered Medication Name Filled Medication Name Start Date Stop Date Current Medication? Ordering Clinician Indication Dosage Frequency Signature (SIG) Comments Components Source ketorolac (TORADOL) injection 30 mg 08-27 07:40: 00 08-27 07:51 :00 No 30mg 30 mg, Slow IV Push, ONCE, 1 dose, On Mon08/27/24 at 0145, CELESTE [facility] iopamidol (ISOVUE 370-500 mL) injection 85 mL 08-27 07:30: 00 08-27 07:30 :00 No [id number] 85mL 85 mL, Intravenou s, ONCE, 1 dose, On Mon08/27/24 at 0130, Routine [facility] famotidine (PEPCID (PF)) injection 20 mg 08-27 06:30: 00 08-27 06:33 :00 No 20mg 20 mg, Slow IV Push, ONCE, 1 dose, On Mon08/27/24 at 0030, CELESTE [facility] ondansetron (ZOFRAN (PF)) injection 4 mg 08-27 06:30: 00 08-27 06:33 :00 No 4mg 4 mg, Slow IV Push, ONCE, 1 dose, On Mon08/27/24 at 0030, Administer over 2-5 Minutes, 2 mL [facility] sodium chloride (NS) injection 5 mL 08-27 06:08: 49 Yes 5mL 5 mL, Intravenou s, PRN, Starting on Mon08/27/24 at 0008, Until Discontinu ed, Routine, IV line flushing [facility] ondansetron 4 mg disintegrat ing tablet 08-27 00:00: 00 Yes [id number] 4mg Take 1 tablet by mouth every 8 (eight) hours as needed for Nausea and Vomiting (N/V). [facility] dicyclomine 10 mg capsule 08-27 00:00: 00 Yes [id number] 10mg Take 1 capsule by mouth 3 (three) times daily as needed for Abdominal pain. [facility] famotidine (PEPCID) 40 mg tablet 08-27 00:00: 00 09-12 05:59 :00 No [id number] 40mg Take 1 tablet by mouth in the morning for 15 days. [facility] Vital Signs Vital Name Observation Time Observation Value Comments S david Systolic blood pressure 2024-08-27 08:00:00 122 mm[Hg] [facility] Diastolic blood pressure 2024-08-27 08:00:00 77 mm[Hg] [facility] hospital Heart rate 2024-08-27 08:00:00 62 /min [facility] Respiratory rate 2024-08-27 08:00:00 19 /min [facility] Oxygen saturation in Arterial blood by Pulse oximetry 2024-08-27 08:00:00 98 /min [place] [facility] Body temperature 2024-08-27 06:03:00 36.89 Jeniffer [facility] Body height 2024-08-27 06:03:00 193 cm [facility] Body weight 2024-08-27 06:03:00 117.935 kg [facility] BMI 2024-08-27 06:03:00 31.65 kg/m2 [facility] Procedures Procedure Date / Time Performed Performing Clinicia n Source CT ABDOMEN PELVIS W CONTRAST 2024-08-27 06:42:00 Olivia Yoder [facility] LIPASE 2024-08-27 06:33:00 [facility] COMP. METABOLIC PANEL (03609) 2024-08-27 06:33:00 Olivia Yoder [facility] CBC WITH DIFF 2024-08-27 06:33:00 Paresh [facility] URINALYSIS 2024-08-27 06:33:00 [facility] Encounters Start Date/Time End Date/Time Encounter Type Admission Type Attending Clinicians Care Facility Care Department Encounter ID Source 2024-08-27 00:06:00 2024-08-27 02:23:00 Emergency X OLIVIA YODER [facility] ERT [id number] [facility] 2024-08-27 00:06:00 2024-08-27 02:23:00 Emergency Olivia Yoder AT [facility] [id number] [facility] 2022-11-09 10:11:08 2022-11-09 10:11:08 Outpatient [facility] [id number] Brigido Anderson Results Test Description Test Time Test Comments Results Result Comments Source CT Abdomen pelvis w contrast 7 07:38:01 ORDERING PHYSICIAN: OLIVIA YODER ABDOMEN AND PELVIS CT WITH CONTRAST. DATE: ?08/27/2024 1:35 AM CLINICAL INDICATIONS: ?Right lower quadrant abdominal pain. TECHNIQUE: ?Axial computed tomographic images of the abdomen and pelviswere obtained after administration of 100 mL of Omnipaque 350intravenously. CT scan was performed according to ALARA (As Low asReasonably Achievable). COMPARISON: ?None. Abdomen findings: The lung bases are clear. The cardiac apex isunremarkable. Slight hepatomegaly is present. The spleen, pancreas, gallbladder, adrenalglands and kidneys have an unremarkable contrast-enhanced. The stomach, small bowel and colon demonstrate no evidence for obstructionor inflammation. A normal appendix is present in the left lower quadrant. No adenopathy or free fluid are identified in the abdomen. No acute osseousabnormality is demonstrated. Pelvis findings: The small bowel and colon are normal caliber. The urinarybladder demonstrates no abnormality. The prostate gland is within normallimits of size. No adenopathy or free fluid are identified in the pelvis.No acute osseous abnormality is demonstrated. [facility] Notes Date/Time Note Provider Source 2024-08-27 02:22:20 PT D/C home. GCS15, VS stable. Given D/C paperwork. Pt ambulatory at time of discharge. Pt educated on med usage, follow up care, s/s worsening condition, need for hydration. Pt verbalized understanding. Pt ambulated from ED in NAD. VSS. Prescriptions sent to pharmacy. ER Olivares RN [facility] 2024-08-27 00:46:22 Pt return to Room from radiology ambulatory with information technology teacher. ER Ca RN [facility] 2024-08-27 00:03:03 Pt presents to ED ambulatory with c/o stomach cramping pain that started last night. Denies N/V/D. [facility]
[2025-01-04 01:36] LABS: Specific Gravity < 1.005 (1.005-1.030); Urine Bilirubin NEGATIVE (Negative); Urine Blood Negative (Negative); Urine Clarity Clear (Clear); Urine Color Colorless (Yellow); Urine Glucose NEGATIVE (Negative); Urine Ketones NEGATIVE (Negative); Urine Microscopic Reflex YN NO UMIC; Urine Nitrite NEGATIVE (Negative); Urine Protein NEGATIVE (Negative); Urine Urobilinogen Normal (Normal)
[2025-01-04] MEDS ORDERED: PHENAZOPYRIDINE 100MG TAB PO ONE (01:56)
--- NOTE | 2025-01-04 02:03 | EDPHYS ---
Physician Documentation [facility] Name: Xavi Jarrell Age: 29 yrs Sex: Male : 1995 Arrival Date: 01/04/2025 Time: 00:21 Bed 9 Private MD: ED Physician Martin Hernandez HPI: 01/04 01:50 This 29 yrs old Male presents to ER via Ambulatory with complaints of ms3 Testicular Problem, Urinary Frequency. 01:50 29-year-old male with past medical history of kidney stone presents to the emergency ms3 department for urinary frequency. Patient denies dysuria, testicular pain, fevers, chills, nausea, vomiting, penile discharge.. Historical: - Allergies: 00:58 No Known Allergies; kl - Home Meds: 00:58 None [Active]; kl - PMHx: 00:58 Kidney stone; kl - PSHx: 00:58 None; kl - Immunization history:: Adult Immunizations up to date. - Infectious Disease History:: Denies. - Social history:: Smoking status: Patient denies any tobacco usage or history of. ROS: 01:50 Constitutional: Negative for fever, and chills. Cardiovascular: Negative for chest ms3 pain, and palpitations. Respiratory: Negative for shortness of breath, cough, wheezing, and pleuritic chest pain, Abdomen/GI: Negative for abdominal pain, nausea, vomiting, diarrhea, and constipation, MS/Extremity: Negative for injury and deformity, Skin: Negative for injury, rash, and discoloration, 01:50 : Positive for urinary frequency, Negative for burning with urination, difficulty urinating, penile discharge, penile pain, testicular pain Exam: 01:50 Constitutional: This is a well developed, well nourished patient who is awake, alert, ms3 and in no acute distress. Cardiovascular: Regular rate and rhythm with a normal S1 and S2. No gallops, murmurs, or rubs. Normal PMI, no JVD. No pulse deficits. Respiratory: Lungs have equal breath sounds bilaterally, clear to auscultation and percussion. No rales, rhonchi or wheezes noted. No increased work of breathing, no retractions or nasal flaring. Abdomen/GI: Soft, non-tender, with normal bowel sounds. No distension or tympany. No guarding or rebound. No evidence of tenderness throughout. Skin: Warm, dry with normal turgor. Normal color with no rashes, no lesions, and no evidence of cellulitis. MS/ Extremity: Pulses equal, no cyanosis. Neurovascular intact. Full, normal range of motion. Vital Signs: 00:56 BP 144 / 88; Pulse 72; Resp 16; Temp 98.4(O); Pulse Ox 100% on R/A; Weight 121.56 kg kl (R); Height 6 ft. 4 in. ; Pain 0/10; 00:56 Body Mass Index 32.62 (121.56 kg, 193.04 cm) kl 00:56 Pain Scale: Adult kl MDM: 01:30 Medical Screening Exam initiated ms3 01:50 Differential diagnosis: UTI, Hyperglycemia. Data reviewed: vital signs, nurses notes, ms3 lab test result(s), and as a result, I will discharge patient. I considered the following discharge prescriptions or medication management in the emergency department Medications were administered in the Emergency Department. See MAR. Counseling: I had a detailed discussion with the patient and/or guardian regarding the historical points, exam findings, and any diagnostic results supporting the discharge/admit diagnosis, lab results, the need for outpatient follow up, to return to the emergency department if symptoms worsen or persist or if there are any questions or concerns that arise at home. Special discussion: I discussed with the patient/guardian in detail that at this point there is no indication for admission to the hospital. It is understood, however, that if the symptoms persist or worsen the patient needs to return immediately for re-evaluation. ED course: Discussed urinalysis results with patient. Patient given Pyridium in the emergency department. Patient given Rx for Pyridium. Patient to follow-up with urology in 2 to 3 days. All questions were answered. Return precautions discussed include fevers, back pain, worsening symptoms, or any other concerns.. 01:50 Counseling: I had a detailed discussion with the patient and/or guardian regarding the ms3 presence of at least one elevated blood pressure reading (>120/80) during this emergency department visit. Special discussion: I have referred the patient to see his PCP for further evaluation of high blood pressure. 01/04 00:32 Order name: UA Rfx Adebayo Cult if indicated; Complete Time: 01:49 ms3 Administered Medications: 01:59 Drug: Phenazopyridine PO 200 mg PO once Route: PO; kl 02:23 Follow up: Response: No adverse reaction br2 Disposition Summary: 01/04/25 02:03 Discharge Ordered Notes: Location: Home ms3 Condition: Stable ms3 Diagnosis - Urinary frequency ms3 Followup: ms3 - With: Kyle Hester MD - When: 2 - 3 days - Reason: Recheck today's complaints Discharge Instructions: - Discharge Summary Sheet ms3 - Interstitial Cystitis ms3 - Eating Plan for Interstitial Cystitis ms3 Forms: - Medication Reconciliation Form ms3 - Antibiotic Education ms3 - Prescription Opioid Use ms3 - Patient Portal Instructions ms3 - Leadership Thank You Letter ms3 Prescriptions: - Pyridium 200 mg Oral Tablet - take 1 tablet ORAL route every 8 hours for 3 days; 9 tablet; Refills: 0, ms3 Product Selection Permitted Signatures: Dispatcher [employer] EDMS Rosalva Roberto RN RN kl Sims, Marcus, DO DO ms3 Diana Carvajal RN br2 Corrections: (The following items were deleted from the chart) 02:04 01:50 ED course: Discussed urinalysis results with patient. Patient given Pyridium in ms3 the emergency department. Discussed [id number] AZO with patient. Patient to follow-up with urology in 2 to 3 days. All questions were answered. Return precautions discussed include fevers, back pain, worsening symptoms, or any other concerns.. ms3
--- NOTE | 2025-01-04 02:03 | ER ---
Nurse's Notes [facility] Name: Xavi Jarrell Age: 29 yrs Sex: Male : 1995 Arrival Date: 01/04/2025 Time: 00:21 Bed 9 Private MD: Diagnosis: Urinary frequency Presentation: 01/04 00:56 Chief complaint: Patient states: urinary frequency x 5 days denies burning with kl urination or discharge. Coronavirus screen: Vaccine status: Patient reports receiving the 2nd dose of the covid vaccine. Ebola Screen: Patient negative for fever greater than or equal to 101.5 degrees Fahrenheit, and additional compatible Ebola Virus Disease symptoms. Initial Sepsis Screen: Does the patient meet any 2 criteria? No. Patient's initial sepsis screen is negative. Does the patient have a suspected source of infection? No. Patient's initial sepsis screen is negative. Risk Assessment: Do you want to hurt yourself or someone else? Patient reports no desire to harm self or others. 00:56 Method Of Arrival: Ambulatory kl 00:56 Acuity: DEVAN 3 kl Triage Assessment: 00:58 General: Appears uncomfortable, Behavior is calm, cooperative. : Reports urinary kl frequency. Historical: - Allergies: 00:58 No Known Allergies; kl - Home Meds: 00:58 None [Active]; kl - PMHx: 00:58 Kidney stone; kl - PSHx: 00:58 None; kl - Immunization history:: Adult Immunizations up to date. - Infectious Disease History:: Denies. - Social history:: Smoking status: Patient denies any tobacco usage or history of. Screenin:05 [facility] ED Fall Risk Assessment (Adult) History of falling in the last 3 months, br2 including since admission No falls in past 3 months (0 pts) Confusion or Disorientation No (0 pts) Intoxicated or Sedated No (0 pts) Impaired Gait No (0 pts) Mobility Assist Device Used No (0 pt) Altered Elimination No (0 pt) Score/Fall Risk Level 0 - 2 = Low Risk Oriented to surroundings. Abuse screen: Denies threats or abuse. Denies injuries from another. Nutritional screening: No deficits noted. Tuberculosis screening: No symptoms or risk factors identified. Assessment: 02:05 Reassessment: Patient and/or family updated on plan of care and expected duration. Pain br2 level reassessed. Patient is alert, oriented x 3, equal unlabored respirations, skin warm/dry/pink. Patient states symptoms have improved. General: Appears in no apparent distress. comfortable, Behavior is calm, cooperative. Pain: Denies pain. Vital Signs: 00:56 BP 144 / 88; Pulse 72; Resp 16; Temp 98.4(O); Pulse Ox 100% on R/A; Weight 121.56 kg kl (R); Height 6 ft. 4 in. ; Pain 0/10; 00:56 Body Mass Index 32.62 (121.56 kg, 193.04 cm) 00:56 Pain Scale: Adult ED Course: 00:26 Patient arrived in ED. gm2 00:32 Martin Hernandez DO is Attending Physician. ms3 00:58 Triage completed. 02:03 Kyle Hester MD is Referral Physician. ms3 02:05 Bed in low position. Call light in reach. Side rails up X 1. Provided Education on: br2 PLAN OF CARE. 02:25 Arm band placed on right wrist. br2 02:25 No provider procedures requiring assistance completed. Patient did not have IV access br2 during this emergency room visit. Administered Medications: 01:59 Drug: Phenazopyridine PO 200 mg PO once Route: PO; kl 02:23 Follow up: Response: No adverse reaction br2 Outcome: 02:03 Discharge ordered by . ms3 02:25 Discharged to home ambulatory, br2 02:25 Condition: stable 02:25 Discharge instructions given to patient, Instructed on discharge instructions, follow up and referral plans. Demonstrated understanding of instructions, follow-up care, medications, Prescriptions given X 1, 02:28 Patient left the ED. br2 Signatures: Rosalva Roberto RN RN Martin Crandall DO DO ms3 Evelin Alvarez gm2 Diana Carvajal RN RN br2
[2025-01-04 02:32] VITALS: BP 144/88; TEMP 98.4; O2SAT 100
== END 2025-01-04 02:28 | disposition home or self-care (01) ==
LOC: ER 00:21
DX: R35.0 Frequency of micturition (principal)
CPT/HCPCS: 81003; 99283

== ENCOUNTER 2025-01-05 18:28 | Emergency (ER) | payer SELFPAY ==
--- OUTSIDE RECORDS SUMMARY | 2025-01-05 18:30 | XMS REPORT | Continuity of Care Document ---
Author Name Unknown Address [address] [place] [address] [facility] [place] Address [address] [place] [address] Care Team Providers Care Pick And Shovel Worker Name Role Phone Pcp, Patient Does Not Have A Primary Care Physic thea OLIVIA YODER Attending Clinician Unavailable OLIVIA YODER Attending Clinician Unavailable Olivia [place] Attending Clinician OLIVIA YODER Admitting Clinician Unavailable Allergies, Adverse Reactions, Alerts Allergy Name Allergy Type Status Severity Reaction(s) Onset Date Inactive Date Treating Clinician Comments Source NO KNOWN ALLERGIE S Drug Class Active [facility] Social History Social Habit Start Date Stop Date Quantity Comments Source Sexual orientation [facility] Sex assigned at 1995 00:00:00 1995 00:00:00 [facility] Smoking Status Start Date Stop Date Source Tobacco smoking consumption unknown [facility] Medications Ordered Medication Name Filled Medication Name Start Date Stop Date Current Medication? Ordering Clinician Indication Dosage Frequency Signature (SIG) Comments Components Source ketorolac (TORADOL) injection 30 mg 08-27 07:40: 00 08-27 07:51 :00 No 30mg 30 mg, Slow IV Push, ONCE, 1 dose, On Mon08/27/24 at 0145, CELESTE [facility] iopamidol (ISOVUE 370-500 mL) injection 85 mL 08-27 07:30: 08-27 07:30 :00 No [id number] 85mL 85 mL, Intravenou s, ONCE, 1 dose, On Mon08/27/24 at 0130, Routine [facility] famotidine (PEPCID (PF)) injection 20 mg 08-27 06:30: 00 08-27 06:33 :00 No 20mg 20 mg, Slow IV Push, ONCE, 1 dose, On Mon08/27/24 at 0030, CELE[facility] ondansetron (ZOFRAN (PF)) injection 4 mg 08-27 06:30: 00 08-27 06:33 :00 No 4mg 4 mg, Slow IV Push, ONCE, 1 dose, On Mon08/27/24 at 0030, Administer over 2-5 Minutes, 2 mL [facility] sodium chloride (NS) injection 5 mL 08-27 06:08: 49 Yes 5mL 5 mL, Intravenou s, PRN, Starting on Mon08/27/24 at 0008, Until Discontinu ed, Routine, IV line flushing [facility] ondansetron 4 mg disintegrat ing tablet 08-27 00:00: 00 Yes [id number] 4mg Take 1 tablet by mouth every 8 (eight) hours as needed for Nausea and Vomiting (N/V). [facility] dicyclomine 10 mg capsule 08-27 00:00: 00 Yes [id number] 10mg Take 1 capsule by mouth 3 (three) times daily as needed for Abdominal pain. [facility] famotidine (PEPCID) 40 mg tablet 08-27 00:00: 00 09-12 05:59 :00 No [id number] 40mg Take 1 tablet by mouth in the morning for 15 days. [facility] Vital Signs Vital Name Observation Time Observation Value Comments S david Systolic blood pressure 2024-08-27 08:00:00 122 mm[Hg] [facility] Diastolic blood pressure 2024-08-27 08:00:00 77 mm[Hg] [facility] Heart rate 2024-08-27 08:00:00 62 /min [facility] Respiratory rate 2024-08-27 08:00:00 19 /min [facility] Oxygen saturation in Arterial blood by Pulse oximetry 2024-08-27 08:00:00 98 /min [place] [facility] Body temperature 2024-08-27 06:03:00 36.89 Jeniffer [facility] Body height 2024-08-27 06:03:00 193 cm [facility] Body weight 2024-08-27 06:03:00 117.935 kg [facility] BMI 2024-08-27 06:03:00 31.65 kg/m2 [facility] Procedures Procedure Date / Time Performed Performing Clinicia n Source CT ABDOMEN PELVIS W CONTRAST 2024-08-27 06:42:00 Olivia Yoder [facility] LIPASE 2024-08-27 06:33:00 [facility] COMP. METABOLIC PANEL ([id number]) 2024-08-27 06:33:00 Olivia Yoder [facility] CBC WITH DIFF 2024-08-27 06:33:00 [facility] URINALYSIS 2024-08-27 06:33:00 [facility] Encounters Start Date/Time End Date/Time Encounter Type Admission Type Attending Clinicians Care Facility Care Department Encounter ID Source 2024-08-27 00:06:00 2024-08-27 02:23:00 Emergency X OLIVIA YODER [facility] ERT [id number] [facility] 2024-08-27 00:06:00 2024-08-27 02:23:00 Emergency Olivia Yoder [facility] [id number] [facility] 2022-11-09 10:11:08 2022-11-09 10:11:08 Outpatient [facility] [id number] Brigido Anderson Results Test Description Test Time [...] the pelvis.No acute osseous abnormality is demonstrated. [facility] Notes Date/Time Note Provider Source 2024-08-27 02:22:20 PT D/C home. GCS15, VS stable. Given D/C paperwork. Pt ambulatory at time of discharge. Pt educated on med usage, follow up care, s/s worsening condition, need for hydration. Pt verbalized understanding. Pt ambulated from ED in NAD. VSS. Prescriptions sent to pharmacy. ER Olivares RN [facility] 2024-08-27 00:46:22 Pt return to Room from radiology ambulatory with injection mold technician. ER Ca RN [facility] 2024-08-27 00:03:03 Pt presents to ED ambulatory with c/o stomach cramping pain that started last night. Denies N/V/D. [facility]
[2025-01-05] MEDS ORDERED: KETOROLAC 30 MG/ML INJ ONE (20:03)
[2025-01-05 20:32] LABS: Specific Gravity 1.009 (1.005-1.030); Sqamous Epithelial None Seen /HPF (None Seen); Urine Bacteria None Seen /HPF (<20); Urine Bilirubin 1+ (Negative); Urine Blood Negative (Negative); Urine Clarity Clear (Clear); Urine Color Dark-Yellow (Yellow); Urine Culture Reflex Order NOT NEEDED; Urine Glucose NEGATIVE (Negative); Urine Ketones NEGATIVE (Negative); Urine Microscopic Reflex YN ORDER UMIC; Urine Nitrite 1+ (Negative); Urine Protein NEGATIVE (Negative); Urine RBC <5 /HPF (None Seen); Urine Urobilinogen 1+ (Normal); Urine WBC <5 /HPF (<5)
--- NOTE | 2025-01-05 20:49 | EDPHYS ---
Physician Documentation [facility] Name: Xavi Jarrell Age: 29 yrs Sex: Male : 1995 Arrival Date: 01/05/2025 Time: 18:28 Bed 9 Private MD: ED Physician En Durant HPI: 01/05 22:20 This 29 yrs old Male presents to ER via Ambulatory with complaints of Penile rt Pain. 22:20 Patient presents to the ED with urinary frequency, discomfort and irritation with rt urination. Denies overt urinary pain. He was seen in the ED, given negative urinalysis, discharged on Pyridium. Denies other acute complaints at this time, symptoms are mild in severity, no other aggravating alleviating factors.. Historical: - Allergies: 18:46 No Known Allergies; cm10 - PMHx: 18:46 Kidney stone; cm10 - Immunization history:: Adult Immunizations up to date. - Infectious Disease History:: Denies. - Social history:: Smoking status: Patient denies any tobacco usage or history of. - Family history:: not pertinent. ROS: 22:20 Constitutional: Negative for fever, chills, and weight loss, Abdomen/GI: Negative for rt abdominal pain, nausea, vomiting, diarrhea, and constipation, Skin: Negative for injury, rash, and discoloration, Neuro: Negative for headache, weakness, numbness, tingling, and seizure, 22:20 : Positive for urinary frequency, Negative for penile discharge, Exam: 22:20 Constitutional: This is a well developed, well nourished patient who is awake, alert, rt and in no acute distress. Abdomen/GI: Soft, non-tender, with normal bowel sounds. No distension or tympany. No guarding or rebound. No evidence of tenderness throughout. Skin: Warm, dry with normal turgor. Normal color with no rashes, no lesions, and no evidence of cellulitis. MS/ Extremity: Pulses equal, no cyanosis. Neurovascular intact. Full, normal range of motion. Neuro: Awake and alert, GCS 15, oriented to person, place, time, and situation. Cranial nerves II-XII grossly intact. Motor strength 5/5 in all extremities. Sensory grossly intact. Cerebellar exam normal. Normal gait. 22:20 : External genitalia within normal limits, no urethral discharge, no signs of balanoposthitis, Vital Signs: 18:43 BP 144 / 92; Pulse 83; Resp 16; Temp 97(TE); Pulse Ox 96% on R/A; Weight 121.56 kg; cm10 Height 9 ft. 4 in. ; Pain 8/10; 18:43 Body Mass Index 15.02 (121.56 kg, 284.48 cm) cm10 18:43 Pain Scale: Adult cm10 MDM: 19:23 Medical Screening Exam initiated rt 22:20 Differential diagnosis: UTI, bladder spasms, diabetes. Data reviewed: vital signs, rt nurses notes, lab test result(s). Test considered but Not performed: Other Details Benign physical examination, urinalysis is unremarkable, no signs of diabetes, further labs, imaging are not indicated.. Counseling: I had a detailed discussion with the patient and/or guardian regarding the historical points, exam findings, and any diagnostic results supporting the discharge/admit diagnosis, lab results, the need for outpatient follow up. Special discussion: I discussed with the patient/guardian in detail that at this point there is no indication for admission to the hospital. It is understood, however, that if the symptoms persist or worsen the patient needs to return immediately for re-evaluation. I discussed with the patient/guardian that the patient's current presentation does not indicate dosing of antibiotics. They should follow-up with their primary care provider and return if the symptoms persist or progress. 01/05 19:27 Order name: UA Rfx Adebayo Cult if indicated; Complete Time: 20:33 rt 01/05 20:35 Order name: Glucose, Ancillary Testing; Complete Time: 20:38 EDMS 01/05 19:27 Order name: Accucheck; Complete Time: 20:32 rt Administered Medications: 20:17 Drug: Ketorolac IM 30 mg IM once Route: IM; Site: right gluteus; br2 20:59 Follow up: Response: No adverse reaction br2 Disposition Summary: 01/05/25 20:48 Discharge Ordered Notes: Location: Home rt Problem: an ongoing problem rt Symptoms: are unchanged rt Condition: Stable rt Diagnosis - Dysuria rt Discharge Instructions: - Discharge Summary Sheet rt - Dysuria rt - Urodynamic Testing rt Forms: - Medication Reconciliation Form rt - Antibiotic Education rt - Prescription Opioid Use rt - Patient Portal Instructions rt - Leadership Thank You Letter rt Signatures: En Calvo MD MD rt Lina Anders RN RN cm10 Diana Carvajal RN RN br2
--- NOTE | 2025-01-05 20:49 | ER ---
Nurse's Notes [facility] Name: Xavi Jarrell Age: 29 yrs Sex: Male : 1995 Arrival Date: 01/05/2025 Time: 18:28 Bed 9 Private MD: Diagnosis: Dysuria Presentation: 01/05 18:43 Chief complaint: Patient states: Seen here Parvez for urinary frequency and irritation cm10 to penis. Pt states that the irritation has gotten worse. Pt reports continued urinary frequency. Coronavirus screen: Client denies travel out of the [place] in the last 14 days. Ebola Screen: Patient denies travel to an Ebola-affected area in the 21 days before illness onset. Initial Sepsis Screen: Does the patient meet any 2 criteria? No. Patient's initial sepsis screen is negative. Does the patient have a suspected source of infection? No. Patient's initial sepsis screen is negative. Risk Assessment: Do you want to hurt yourself or someone else? Patient reports no desire to harm self or others. Onset of symptoms was January 05, 2025. 18:43 Method Of Arrival: Ambulatory cm10 18:43 Acuity: DEVAN 4 cm10 Triage Assessment: 18:46 General: Appears uncomfortable, Behavior is calm, cooperative. Neuro: No deficits cm10 noted. Level of Consciousness is awake, alert, obeys commands, Oriented to person, place, time, situation, Appropriate for age. Respiratory: No deficits noted. Airway is patent Respiratory effort is even, unlabored, Respiratory pattern is regular, symmetrical. : Reports urinary frequency. Historical: - Allergies: 18:46 No Known Allergies; cm10 - PMHx: 18:46 Kidney stone; cm10 - Immunization history:: Adult Immunizations up to date. - Infectious Disease History:: Denies. - Social history:: Smoking status: Patient denies any tobacco usage or history of. - Family history:: not pertinent. Screenin:20 [facility] ED Fall Risk Assessment (Adult) History of falling in the last 3 months, br2 including since admission No falls in past 3 months (0 pts) Confusion or Disorientation No (0 pts) Intoxicated or Sedated No (0 pts) Impaired Gait No (0 pts) Mobility Assist Device Used No (0 pt) Altered Elimination No (0 pt) Score/Fall Risk Level 0 - 2 = Low Risk Oriented to surroundings. Abuse screen: Denies threats or abuse. Denies injuries from another. Nutritional screening: No deficits noted. Tuberculosis screening: No symptoms or risk factors identified. Assessment: 20:20 General: Appears uncomfortable, Behavior is calm, cooperative. Pain: Complains of pain br2 in groin Pain currently is 8 out of 10 on a pain scale. 21:00 Reassessment: Patient and/or family updated on plan of care and expected duration. Pain br2 level reassessed. Patient is alert, oriented x 3, equal unlabored respirations, skin warm/dry/pink. 21:02 Reassessment: Patient states feeling better. br2 Vital Signs: 18:43 BP 144 / 92; Pulse 83; Resp 16; Temp 97(TE); Pulse Ox 96% on R/A; Weight 121.56 kg; cm10 Height 9 ft. 4 in. ; Pain 8/10; 18:43 Body Mass Index 15.02 (121.56 kg, 284.48 cm) cm10 18:43 Pain Scale: Adult cm10 ED Course: 18:31 Patient arrived in ED. al6 18:45 Triage completed. cm10 18:46 Arm band placed on right wrist. Patient placed in waiting room. cm10 18:59 En Durant MD is Attending Physician. rt 20:20 Call light in reach. Side rails up X 1. Provided Education on: plan of care. br2 20:48 Yolanda Mendez MD is Referral Physician. rt 20:48 Kyle Hester MD is Referral Physician. rt 20:48 Referral Physician role handed off by Yolanda Mendez MD rt 21:02 No provider procedures requiring assistance completed. Patient did not have IV access br2 during this emergency room visit. Administered Medications: 20:17 Drug: Ketorolac IM 30 mg IM once Route: IM; Site: right gluteus; br2 20:59 Follow up: Response: No adverse reaction br2 Medication: 20:20 VIS not applicable for this client. br2 Outcome: 20:48 Discharge ordered by . rt 21:02 Discharged to home ambulatory, br2 21:02 Condition: good 21:02 Discharge instructions given to patient, Instructed on discharge instructions, Demonstrated understanding of instructions, follow-up care, 21:03 Patient left the ED. br2 Signatures: En Durant MD MD rt Lina Anders, RN RN cm10 Diana Carvajal, RN RN br2 Kisha Narayan6
[2025-01-05 21:22] VITALS: BP 144/92; TEMP 97; O2SAT 96
== END 2025-01-05 21:03 | disposition home or self-care (01) ==
LOC: ER 18:28
DX: R30.0 Dysuria (principal)
CPT/HCPCS: 81001; 82947; 96372; 99284